=== PATIENT | male | born 1935 | race Caucasian/White ===

== ENCOUNTER 2018-08-18 00:38 | Emergency (ER) | payer OTHER, BC ==
[2018-08-18 00:47] VITALS: BP 153/72; PULSE 56; TEMP 97.7; BMI 28.8
--- NOTE | 2018-08-18 00:47 | PDOC ---
History of Present Illness - General Chief Complaint: Back Pain Stated Complaint: BACK PAIN Time Seen by Provider: 08/18/18 00:46 Past History - Past Medical History Diabetes: Yes Thyroid Disease: Yes - Suicide/Smoking/Psychosocial Hx Smoking History: Never smoked Have you smoked in the past 12 months: No Information on smoking cessation initiated: No Hx Alcohol Use: No Drug/Substance Use Hx: No *Physical Exam - Vital Signs Last Vital Signs Temp Pulse Resp BP Pulse Ox 97.7 F 56 L 18 153/72 98 08/18/18 00:45 08/18/18 00:45 08/18/18 00:45 08/18/18 00:45 08/18/18 00:45
--- NOTE | 2018-08-18 00:56 | PDOC ---
History of Present Illness - History of Present Illness Initial Comments: 08/18/18 00:55 Mr. Villanueva is an 83 yo male w/ pmh of DM, HTN, HLD, DVT, prostate CA (s/p prostatectomy), lumbar spinal stenosis (L4-L5), neuropathy, cholecystectomy, appendectomy who presents for evaluation of 1 day history of left lower back pain since waking up this morning. Patient took 2 flexeril (5 mg each) and 3 valiums (10 mg each) that he has for his spinal stenosis over the course of the day. Patient also reports falling around 6pm tonight as he was unsteady and does not recall if he his his head or not. He also reports he pees frequently throughout the day on a normal basis after his prostate operation (10-12 times/ day) The patient denies chest pain, shortness of breath, headache and dizziness. Denies fever, chills, nausea, vomit, diarrhea and constipation. Denies dysuria, urgency and hematuria. Allergies: NKDA <Blayne Zhang - Last Filed: 08/18/18 06:30> <Milo Nunn - Last Filed: 08/18/18 06:33> - General Chief Complaint: Back Pain Stated Complaint: BACK PAIN Time Seen by Provider: 08/18/18 00:46 Past History - Past Medical History Diabetes: Yes Thyroid Disease: Yes - Suicide/Smoking/Psychosocial Hx Smoking History: Never smoked Have you smoked in the past 12 months: No Information on smoking cessation initiated: No Hx Alcohol Use: No Drug/Substance Use Hx: No <Blayne Zhang - Last Filed: 08/18/18 06:30> <Milo Nunn - Last Filed: 08/18/18 06:33> - Past Medical History Allergies/Adverse Reactions: Allergies Allergy/AdvReac Type Severity Reaction Status Date / Time bee venom protein (honey bee) Allergy Mild Swelling Verified 08/18/18 01:25 Home Medications: Ambulatory Orders Cyclobenzaprine HCl [Flexeril -] 10 mg PO TID 08/18/18 Diazepam [Valium] 10 mg PO DAILY 08/18/18 Olmesartan Medoxomil [Benicar (Nf)] 20 mg PO DAILY 08/18/18 Review of Systems - Review of Systems Comments:: 08/18/18 00:55 GENERAL/CONSTITUTIONAL: No fever or chills. No weakness. HEAD, EYES, EARS, NOSE AND THROAT: No change in vision. No ear pain or discharge. No sore throat. CARDIOVASCULAR: No chest pain or shortness of breath RESPIRATORY: No cough, wheezing, or hemoptysis. GASTROINTESTINAL: No nausea, vomiting, diarrhea or constipation. GENITOURINARY: +Frequency as described (chronic). No dysuria, or change in urination. MUSCULOSKELETAL: +Left lower back pain as described. SKIN: No rash NEUROLOGIC: No headache, vertigo, loss of consciousness, or change in strength/ sensation. ENDOCRINE: No increased thirst. No abnormal weight change HEMATOLOGIC/LYMPHATIC: No anemia, easy bleeding, or history of blood clots. ALLERGIC/IMMUNOLOGIC: No hives or skin allergy. <Blayne Zhang - Last Filed: 08/18/18 06:30> *Physical Exam - Vital Signs Last Vital Signs Temp Pulse Resp BP Pulse Ox 97.7 F 56 L 18 153/72 98 08/18/18 00:45 08/18/18 00:45 08/18/18 00:45 08/18/18 00:45 08/18/18 00:45 - Physical Exam Comments: 08/18/18 00:55 GENERAL: Awake, alert, and fully oriented, in no acute distress HEAD: No signs of trauma, normocephalic, atraumatic EYES: PERRLA, EOMI, sclera anicteric, conjunctiva clear ENT: Auricles normal inspection, hearing grossly normal, nares patent, oropharynx clear without exudates. Moist mucosa NECK: Normal ROM, supple, no lymphadenopathy, JVD, or masses LUNGS: No distress, speaks full sentences, clear to auscultation bilaterally HEART: Regular rate and rhythm, normal S1 and S2, no murmurs, rubs or gallops, peripheral pulses normal and equal bilaterally. ABDOMEN: +RUQ and midline TTP. Left lower back TTP. Soft, normoactive bowel sounds. No guarding, no rebound. No masses EXTREMITIES: Normal inspection, Normal range of motion, no edema. No clubbing or cyanosis. NEUROLOGICAL: Cranial nerves II through XII grossly intact. Normal speech, normal gait, no focal sensorimotor deficits SKIN: Warm, Dry, normal turgor, no rashes or lesions noted. <Blayne Zhang - Last Filed: 08/18/18 06:30> - Vital Signs Last Vital Signs Temp Pulse Resp BP Pulse Ox 97.7 F 56 L 18 153/72 98 08/18/18 00:45 08/18/18 00:45 08/18/18 00:45 08/18/18 00:45 08/18/18 00:45 <Milo Nunn - Last Filed: 08/18/18 06:33> ED Treatment Course - LABORATORY CBC & Chemistry Diagram: 08/18/18 02:08 08/18/18 02:08 <Blayne Zhang - Last Filed: 08/18/18 06:30> - LABORATORY CBC & Chemistry Diagram: 08/18/18 02:08 08/18/18 02:08 - ADDITIONAL ORDERS Additional order review: Laboratory Results 08/18/18 08/18/18 08/18/18 03:50 02:08 02:08 PT with INR 11.20 INR 0.95 PTT (Actin FS) 26.9 Sodium Potassium Chloride Carbon Dioxide Anion Gap BUN Creatinine Creat Clearance w eGFR Random Glucose Calcium Total Bilirubin AST ALT Alkaline Phosphatase Troponin I Total Protein Albumin Urine Color Yellow Urine Appearance Clear Urine pH 5.0 Ur Specific Silver 1.023 Urine Protein Negative Urine Glucose (UA) 2+ H Urine Ketones Negative Urine Blood Negative Urine Nitrite Negative Urine Bilirubin Negative Urine Urobilinogen Negative Ur Leukocyte Esterase Negative Blood Type A POSITIVE Antibody Screen Negative 08/18/18 02:08 PT with INR INR PTT (Actin FS) Sodium 136 Potassium 5.1 Chloride 101 Carbon Dioxide 26 Anion Gap 9 BUN 21 H Creatinine 1.1 Creat Clearance w eGFR > 60 Random Glucose 174 H Calcium 10.5 H Total Bilirubin 0.8 AST 15 ALT 23 Alkaline Phosphatase 73 Troponin I < 0.02 Total Protein 6.9 Albumin 3.8 Urine Color Urine Appearance Urine pH Ur Specific Silver Urine Protein Urine Glucose (UA) Urine Ketones Urine Blood Urine Nitrite Urine Bilirubin Urine Urobilinogen Ur Leukocyte Esterase Blood Type Antibody Screen 08/18/18 02:08 RBC 3.97 L MCV 94.8 MCHC 33.3 RDW 13.5 MPV 8.4 Neutrophils % 80.6 Lymphocytes % 12.8 Monocytes % 6.0 Eosinophils % 0.4 Basophils % 0.2 - Medications Given in the ED: ED Medications Discontinued Medications Generic Name Dose Route Start Last Admin Trade Name Freq PRN Reason Stop Dose Admin Acetaminophen 1,000 mg 08/18/18 01:27 08/18/18 02:00 Ofirmev Injection - IVPB 08/18/18 01:28 1,000 mg ONCE ONE Administration Morphine Sulfate 4 mg 08/18/18 01:27 08/18/18 02:00 Morphine Injection - IVPUSH 08/18/18 01:28 4 mg ONCE ONE Administration Morphine Sulfate 4 mg 08/18/18 03:44 08/18/18 04:00 Morphine Injection - IVPUSH 08/18/18 03:45 4 mg ONCE ONE Administration <Milo Nunn - Last Filed: 08/18/18 06:33> Medical Decision Making - Medical Decision Making 08/18/18 01:48 Mr. Villanueva is an 83 yo male w/ pmh as described who presents for evaluation of symptoms concerning for severe muscle spasm vs. dissection. Pain control given with 4mg morphine and IV tylenol. CT head, c-spine, chest and abdominal CTA ordered for further evaluation. 08/18/18 06:30 CT Head, CT c-spine, Chest and abdomen CTA all negative. Labs grossly wnl as below. Patient reporting generalized relief from symptoms and would like to go home. No concern for acute process at this time. Discharging to home. <Blayne Zhang - Last Filed: 08/18/18 06:30> *DC/Admit/Observation/Transfer <Blayne Zhang - Last Filed: 08/18/18 06:30> - Discharge Dispostion Decision to Admit order: No <Milo Nunn - Last Filed: 08/18/18 06:33> Diagnosis at time of Disposition: Back pain Qualifiers: Back pain location: low back pain Chronicity: chronic Back pain laterality: left Sciatica presence: without sciatica Qualified Code(s): M54.5 - Low back pain - Discharge Dispostion Disposition: HOME Condition at time of disposition: Good - Referrals Referrals: Surya Bermudez MD [Primary Care Provider] - - Patient Instructions Printed Discharge Instructions: Low Back Pain Additional Instructions: Take-home pain medications only as prescribed do not take extra.Today take Percocet every 6 hours with meals. Take Valium twice a day. Take over-the- counter Motrin as directed on package every 4-6 hours. Call your pain management doctor this morning to discuss his regimen and follow all instructions provided by pain management doctor. Follow up tomorrow with your doctor to discuss her worsening pain. Return to the emergency department for any new weakness numbness bowel or bladder incontinence for any concerns.
[2018-08-18] MEDS ORDERED: ACETAMINOPHEN 1000 MG/100 ML VIAL (NON FORMULARY) IVPB ONE (01:27)
[2018-08-18] MEDS ORDERED: morphine CARPU-JECT 4 MG/1 ML DISP.SYRIN IVPUSH ONE ×2 (01:27→03:44)
[2018-08-18] MEDS ORDERED: ACETAMINOPHEN INJECTION 100 ML IVPB ONE (01:36)
[2018-08-18] MEDS ORDERED: morphine SULFATE 4 MG/ML VIAL ONE ×2 (01:36→03:55)
[2018-08-18 02:47] LABS: BASO % 0.2 % (0-2.0); EOS % 0.4 % (0-4.5); HEMATOCRIT 37.6 % (35.4-49); HEMOGLOBIN 12.5 GM/dL (11.7-16.9); LYMPH % 12.8 % (8-40); MCH 31.5 pg (25.7-33.7); MCHC 33.3 g/dl (32.0-35.9); MEAN CELL VOLUME 94.8 fl (80-96); MEAN PLT VOLUME 8.4 fl (7.5-11.1); NEUT % 80.6 % (42.8-82.8); PLATELET COUNT 219 K/MM3 (134-434); RBC 3.97 M/mm3 (4.00-5.60); RDW 13.5 % (11.9-15.9); WHITE BLOOD COUNT 6.7 K/mm3 (4.0-10.0)
[2018-08-18 03:06] LABS: INR 0.95 (0.83-1.09); PROTHROMBIN TIME (PATIENT) 11.2 SEC (9.7-13.0)
[2018-08-18 03:09] LABS: ACTIVATED PTT 26.9 SECONDS (25.2-36.5)
[2018-08-18 03:16] LABS: ALBUMIN 3.8 g/dl (3.4-5.0); ALK PHOS 73 U/L (45-117); ANION GAP 9 MMOL/L (8-16); BILIRUBIN,TOTAL 0.8 mg/dL (0.2-1); BLOOD UREA NITROGEN 21 mg/dL (7-18); CALCIUM 10.5 mg/dL (8.5-10.1); CHLORIDE 101 mmol/L (98-107); CO2 26 mmol/L (21-32); CREATININE 1.1 mg/dL (0.55-1.3); GLUCOSE,RANDOM 174 mg/dL (74-106); POTASSIUM 5.1 mmol/L (3.5-5.1); SGOT/AST 15 U/L (15-37); SGPT/ALT 23 U/L (13-61); SODIUM 136 mmol/L (136-145); TOT PROT 6.9 g/dl (6.4-8.2)
[2018-08-18 04:03] LABS: URINE APPEARANCE CLEAR; URINE BILIRUBIN NEGATIVE (<2.0 mg/dL); URINE COLOR YELLOW; URINE GLUCOSE (UA) 2+ (NEGATIVE); URINE KETONE NEGATIVE (NEGATIVE); URINE LEUK ESTERASE NEGATIVE (NEGATIVE); URINE NITRITE NEGATIVE (NEGATIVE); URINE PROTEIN NEGATIVE (NEGATIVE); URINE UROBILINOGEN NEGATIVE mg/dL (0.2-1.0)
--- NOTE | 2018-08-18 05:16 | PDOC ---
Attending Attestation - Resident Resident Name: Blayne Zhang - ED Attending Attestation I have performed the following: I have examined & evaluated the patient, The case was reviewed & discussed with the resident, I agree w/resident's findings & plan, Exceptions are as noted - HPI HPI: 08/18/18 05:18 83 years old past medical history significant for diabetes hypertension hyperlipidemia DVT prostate cancer lumbar spinal stenosis neuropathy cholecystectomy appendectomy with exacerbation of chronic back pain. Patient follows with a pain management doctor took 2 Flexeril 3 Valiums over the course of the day of later in the evening became unsteady and fell Complaining of tenderness and back pain left-sided radiates around persistent concent worse with movement no alleviating factors - Physicial Exam PE: 08/18/18 05:18 Vitals: Triage Vital signs reviewed General Appearance: no acute distress, well nourished well developed, Head: Atraumatic, Neck: Supple;No Nucal rigidity Chest Wall: Nontender Cardiac: Regular rate and rhythym,Lungs: Clear to auscultation bilateral, good air movement bilaterally, Abdomen: Soft, non distended, normal bowel sounds, non tender to palpation Extremities: Full range of motion to all extremities, no cyanosis, clubbing, or edema Skin: Warm and dry, no rashes or lesions, no rash, no petechiae Neuro: Strength intact to all extremities, Sensation intact to all extremities Psych: normal mood, normal affect - Medical Decision Making 08/18/18 05:18 \Moderate to severe back pain rating went abdomen differential diagnosis includes vascular radiology exacerbation of chronic pain We'll CTA chest abdomen pelvis to rule out dissection and aneurysm pain medication observe and reassess Fall is most likely secondary to overmedication on benzos however EKG troponin also obtained Reevaluation CTA negative for acute pathology Patient feels much better after pain medication EKG nonischemic troponin negative patient will discuss further pain management with his doctor today Findings, need for follow-up and strict return instructions discussed with patient. Heart Score/ECG Review - ECG Impressions Comment:: 08/18/18 05:54 EKG performed at 5:29 AM demonstrates sinus rhythm [address] elevations
--- NOTE | 2018-08-18 10:42 | EKG ---
Test Reason : Blood Pressure : / mmHG Vent. Rate : 055 BPM Atrial Rate : 055 BPM P-R Int : 146 ms QRS Dur : 126 ms QT Int : 456 ms P-R-T Axes : 037 021 008 degrees QTc Int : 436 ms SINUS BRADYCARDIA RIGHT BUNDLE BRANCH BLOCK ABNORMAL ECG WHEN COMPARED WITH ECG OF 10-JAN-2018 14:00, NO SIGNIFICANT CHANGE WAS FOUND Confirmed by ELIER JEFFERY MD ([id number]) on 08/18/2018 10:42:00 AM Referred By: Confirmed By:ELIER EJFFERY MD
== END 2018-08-18 06:50 | disposition home or self-care (01) ==
LOC: JER 00:38
DX: M54.5 Low back pain (principal); E11.9 Type 2 diabetes mellitus without complications; I10 Essential (primary) hypertension; E78.5 Hyperlipidemia, unspecified; Z86.718 Personal history of other venous thrombosis and embolism; Z85.46 Personal history of malignant neoplasm of prostate; V43.52XA Car driver injured in collision with other type car in traffic accident, initial encounter; Y93.89 Activity, other specified; Y92.410 Unspecified street and highway as the place of occurrence of the external cause
CPT/HCPCS: 36415; 70450-TC; 71275-TC; 72126-TC; 74175-TC; 80053; 81003; 84484; 85025; 85610; 85730; 86850; 86900; 86901; 87086; 93005; 93010; 99283-25; J0131

== ENCOUNTER 2022-10-26 14:09 | Inpatient (IN) | payer OTHER, BC ==
[2022-10-26 18:21] LABS: CALCIUM 10.3 mg/dL (8.5-10.1)
[2022-10-26 18:22] LABS: ALBUMIN 3.9 g/dl (3.4-5.0); BLOOD UREA NITROGEN 12.6 mg/dL (7-18)
[2022-10-26 18:27] LABS: BILIRUBIN,TOTAL 1.1 mg/dL (0.2-1); TOT PROT 6.7 g/dl (6.4-8.2)
[2022-10-26 18:28] LABS: BASO % 0.2 % (0-2.0); EOS % 0.1 % (0-4.5); HEMATOCRIT 38.6 % (35.4-49); HEMOGLOBIN 12.5 GM/dL (11.7-16.9); LYMPH % 3.7 % (8-40); MCH 29.6 pg (25.7-33.7); MCHC 32.4 g/dl (32.0-35.9); MEAN CELL VOLUME 91.3 fl (80-96); MEAN PLT VOLUME 7.9 fl (7.5-11.1); MONO % 3.6 % (3.8-10.2); NEUT % 92.4 % (42.8-82.8); PLATELET COUNT 231 10^3/uL (134-434); RBC 4.23 M/mm3 (4.00-5.60); RDW 13.7 % (11.9-15.9); WHITE BLOOD COUNT 11.5 K/mm3 (4.0-10.0)
[2022-10-26 18:56] LABS: PLATELET ESTIMATE ADEQUATE
[2022-10-26] MEDS ORDERED: SODIUM CHLORIDE 1,000 ML IV STA (22:41)
[2022-10-26] MEDS ORDERED: PEG 3350/NA SULF BICARB CL/KCL 4000 ML SOLN.RECON PO ONE (22:42)
[2022-10-26] MEDS ORDERED: MINERAL OIL ENEMA 133 ML ENEMA RC ONE (22:42)
[2022-10-27] MEDS ORDERED: HALOPERIDOL LACTATE 5 MG/ML IM PRN (00:16)
[2022-10-27] MEDS ORDERED: LORazepam 2 MG/ML SDV VIAL IVPUSH ONE ×2 (00:16→01:18)
[2022-10-27] MEDS ORDERED: HALOPERIDOL LACTATE 5 MG/ML IM ONE ×2 (00:16→00:34)
[2022-10-27 08:45] LABS: BASO % 0.2 % (0-2.0); HEMATOCRIT 36.1 % (35.4-49); HEMOGLOBIN 11.9 GM/dL (11.7-16.9); LYMPH % 6.5 % (8-40); MEAN CELL VOLUME 90.9 fl (80-96); MEAN PLT VOLUME 8.7 fl (7.5-11.1); MONO % 4.9 % (3.8-10.2); NEUT % 88.4 % (42.8-82.8); PLATELET COUNT 246 10^3/uL (134-434); RBC 3.97 M/mm3 (4.00-5.60); RDW 13.8 % (11.9-15.9); WHITE BLOOD COUNT 12.2 K/mm3 (4.0-10.0)
[2022-10-27] MEDS ORDERED: ENOXAPARIN NA (PORCINE) 40 MG/0.4 ML DISP.SYRIN SQ ONE (08:55)
[2022-10-27] MEDS ORDERED: CEFTRIAXONE 1 GM/50 ML BAG ONE (08:55)
[2022-10-27 09:07] LABS: ALBUMIN 3.5 g/dl (3.4-5.0); BLOOD UREA NITROGEN 15.5 mg/dL (7-18); MAGNESIUM 1.8 mg/dL (1.8-2.4)
[2022-10-27 09:08] LABS: BILIRUBIN,TOTAL 1.9 mg/dL (0.2-1); TOT PROT 6.3 g/dl (6.4-8.2)
[2022-10-27 09:10] LABS: CREATININE 1.1 mg/dL (0.55-1.3); PHOSPHOROUS 3.1 mg/dL (2.5-4.9)
[2022-10-27] MEDS: MINERAL OIL ENEMA 133 ML ENEMA RC SCH ×3 (09:32→10:01)
[2022-10-27] MEDS: ENOXAPARIN NA (PORCINE) 40 MG/0.4 ML DISP.SYRIN SQ SCH (10:00)
[2022-10-27] MEDS: CEFTRIAXONE 1 GM in DEXTROSE 5%-WATER - 50 ML IVPB SCH (10:01)
[2022-10-27] MEDS ORDERED: LACTATED RINGERS SOLUTION 1,000 ML/1,000 ML INFUS.BAG IV SCH (13:00)
[2022-10-27] MEDS: SODIUM CHLORIDE 1,000 ML IV SCH (13:19)
[2022-10-27] MEDS: POLYETHYLENE GLYCOL (HEALTHYLAX) 3350 17 GM PACKET PO SCH ×3 (13:19→23:02)
[2022-10-27 14:23] LABS: URINE APPEARANCE CLEAR; URINE BILIRUBIN NEGATIVE (NEGATIVE); URINE COLOR YELLOW; URINE GLUCOSE (UA) NEGATIVE (NEGATIVE); URINE KETONE NEGATIVE (NEGATIVE); URINE LEUK ESTERASE NEGATIVE (NEGATIVE); URINE NITRITE NEGATIVE (NEGATIVE); URINE PROTEIN TRACE (NEGATIVE); URINE UROBILINOGEN 0.2 mg/dL (0.2-1.0)
[2022-10-27] MEDS ORDERED: ACETAMINOPHEN 1000 MG/100 ML BAG IVPB ONE (17:39)
[2022-10-27] MEDS ORDERED: ACETAMINOPHEN INJECTION 100 ML IVPB ONE (17:44)
[2022-10-27] MEDS ORDERED: POLYETHYLENE GLYCOL (HEALTHYLAX) 3350 17 GM PACKET ONE (22:51)
[2022-10-27] MEDS ORDERED: MELATONIN 5 MG TABLETS ONE (22:51)
[2022-10-27] MEDS: MELATONIN 5 MG TABLETS PO PRN (23:02)
[2022-10-27] MEDS ORDERED: ACETAMINOPHEN 1000 MG/100 ML BAG IVPB PRN (23:59)
[2022-10-28] MEDS ORDERED: HALOPERIDOL LACTATE 5 MG/ML IM ONE (01:25)
[2022-10-28 09:58] LABS: BASO % 0.3 % (0-2.0); EOS % 0.4 % (0-4.5); HEMATOCRIT 31.1 % (35.4-49); HEMOGLOBIN 10.6 GM/dL (11.7-16.9); LYMPH % 7.7 % (8-40); MCH 30.9 pg (25.7-33.7); MCHC 34.2 g/dl (32.0-35.9); MEAN CELL VOLUME 90.3 fl (80-96); MEAN PLT VOLUME 7.9 fl (7.5-11.1); MONO % 5.4 % (3.8-10.2); NEUT % 86.2 % (42.8-82.8); PLATELET COUNT 203 10^3/uL (134-434); RBC 3.45 M/mm3 (4.00-5.60); RDW 13.9 % (11.9-15.9); WHITE BLOOD COUNT 8.5 K/mm3 (4.0-10.0)
[2022-10-28 10:23] LABS: BLOOD UREA NITROGEN 19.3 mg/dL (7-18); CALCIUM 9.6 mg/dL (8.5-10.1); MAGNESIUM 1.7 mg/dL (1.8-2.4)
[2022-10-28 10:24] LABS: ALBUMIN 3.2 g/dl (3.4-5.0)
[2022-10-28 10:26] LABS: PHOSPHOROUS 2.4 mg/dL (2.5-4.9)
[2022-10-28 10:28] LABS: BILIRUBIN,TOTAL 1.7 mg/dL (0.2-1); TOT PROT 5.9 g/dl (6.4-8.2)
[2022-10-28] MEDS: POLYETHYLENE GLYCOL (HEALTHYLAX) 3350 17 GM PACKET PO SCH ×2 (10:40→21:36)
[2022-10-28] MEDS: CEFTRIAXONE 1 GM in DEXTROSE 5%-WATER - 50 ML IVPB SCH (10:45)
[2022-10-28] MEDS: ENOXAPARIN NA (PORCINE) 40 MG/0.4 ML DISP.SYRIN SQ SCH (10:45)
[2022-10-28] MEDS: LOSARTAN POTASSIUM 50 MG TABLET PO SCH (10:45)
[2022-10-28] MEDS ORDERED: LOSARTAN POTASSIUM 50 MG TABLET ONE (10:49)
[2022-10-28] MEDS ORDERED: CEFTRIAXONE 1 GM/50 ML BAG ONE (10:49)
[2022-10-28] MEDS ORDERED: ENOXAPARIN NA (PORCINE) 40 MG/0.4 ML DISP.SYRIN SQ ONE (10:49)
[2022-10-28] MEDS ORDERED: MAGNESIUM SULF 50% (8.12 MEQ/2 ML-1 GM VIAL) IVPB ONE (11:57)
[2022-10-28] MEDS ORDERED: MAGNESIUM 1GM/D5W - 1 GM/100 ML IVPB IVPB ONE (12:00)
[2022-10-28] MEDS ORDERED: POTASSIUM PHOSPHATE 15 MM in SODIUM CHLORIDE 250 ML IVPB ONE (12:30)
[2022-10-28] MEDS: SODIUM CHLORIDE 1,000 ML IV SCH (13:25)
[2022-10-28 20:07] VITALS: BMI 26.9
[2022-10-28] MEDS: MELATONIN 5 MG TABLETS PO PRN (21:42)
[2022-10-29] MEDS ORDERED: POTASSIUM PHOSPHATE 30 MM in DEXTROSE 5%-WATER - 500 ML IVPB ONE (08:08)
[2022-10-29] MEDS ORDERED: MAGNESIUM SULF 50% (8.12 MEQ/2 ML-1 GM VIAL) IVPB ONE (08:30)
[2022-10-29] MEDS ORDERED: SODIUM PHOSPHATE - 30 MM in SODIUM CHLORIDE 500 ML IVPB ONE (10:00)
[2022-10-29 11:35] LABS: BASO % 0.5 % (0-2.0); EOS % 1.4 % (0-4.5); LYMPH % 10.7 % (8-40); MCH 31.2 pg (25.7-33.7); MCHC 34.6 g/dl (32.0-35.9); MEAN CELL VOLUME 90.3 fl (80-96); MEAN PLT VOLUME 8.3 fl (7.5-11.1); NEUT % 81.4 % (42.8-82.8); PLATELET COUNT 197 10^3/uL (134-434); RBC 3.21 M/mm3 (4.00-5.60); RDW 13.6 % (11.9-15.9)
[2022-10-29 12:07] LABS: ALBUMIN 2.8 g/dl (3.4-5.0)
[2022-10-29 12:08] LABS: BLOOD UREA NITROGEN 15.2 mg/dL (7-18); CALCIUM 9.2 mg/dL (8.5-10.1); MAGNESIUM 1.8 mg/dL (1.8-2.4)
[2022-10-29 12:10] LABS: CREATININE 0.8 mg/dL (0.55-1.3); PHOSPHOROUS 2.6 mg/dL (2.5-4.9)
[2022-10-29 12:12] LABS: TOT PROT 5.3 g/dl (6.4-8.2)
[2022-10-29] MEDS: ENOXAPARIN NA (PORCINE) 40 MG/0.4 ML DISP.SYRIN SQ SCH (12:36)
[2022-10-29] MEDS: LOSARTAN POTASSIUM 50 MG TABLET PO SCH (12:36)
[2022-10-29] MEDS: CEFTRIAXONE 1 GM in DEXTROSE 5%-WATER - 50 ML IVPB SCH (12:36)
[2022-10-29] MEDS: POLYETHYLENE GLYCOL (HEALTHYLAX) 3350 17 GM PACKET PO SCH ×3 (12:38→22:48)
[2022-10-29] MEDS ORDERED: MAGNESIUM 2GM/50ML STERILE WATER IVPB IVPB ONE (15:30)
[2022-10-29] MEDS: MELATONIN 5 MG TABLETS PO PRN (22:47)
[2022-10-30] MEDS: POLYETHYLENE GLYCOL (HEALTHYLAX) 3350 17 GM PACKET PO SCH ×3 (07:05→21:24)
[2022-10-30] MEDS: ENOXAPARIN NA (PORCINE) 40 MG/0.4 ML DISP.SYRIN SQ SCH (10:40)
[2022-10-30] MEDS: CEFTRIAXONE 1 GM in DEXTROSE 5%-WATER - 50 ML IVPB SCH (10:40)
[2022-10-30] MEDS: LOSARTAN POTASSIUM 50 MG TABLET PO SCH (10:40)
[2022-10-30 11:52] LABS: BASO % 0.3 % (0-2.0); EOS % 1.1 % (0-4.5); HEMATOCRIT 31.1 % (35.4-49); HEMOGLOBIN 10.8 GM/dL (11.7-16.9); LYMPH % 9.4 % (8-40); MCHC 34.8 g/dl (32.0-35.9); MEAN CELL VOLUME 89.3 fl (80-96); MEAN PLT VOLUME 8.4 fl (7.5-11.1); NEUT % 83.2 % (42.8-82.8); PLATELET COUNT 232 10^3/uL (134-434); RBC 3.48 M/mm3 (4.00-5.60); RDW 13.4 % (11.9-15.9); WHITE BLOOD COUNT 5.8 K/mm3 (4.0-10.0)
[2022-10-30 11:56] LABS: ALBUMIN 2.9 g/dl (3.4-5.0); CALCIUM 9.3 mg/dL (8.5-10.1)
[2022-10-30 11:57] LABS: BLOOD UREA NITROGEN 15.9 mg/dL (7-18)
[2022-10-30 11:59] LABS: CREATININE 0.9 mg/dL (0.55-1.3); PHOSPHOROUS 2.9 mg/dL (2.5-4.9)
[2022-10-30 12:01] LABS: BILIRUBIN,TOTAL 0.8 mg/dL (0.2-1); TOT PROT 5.3 g/dl (6.4-8.2)
[2022-10-30] MEDS ORDERED: IRON SUCROSE INJECTION 200 MG in SODIUM CHLORIDE 90 ML IVPB ONE (18:30)
[2022-10-30] MEDS: MELATONIN 5 MG TABLETS PO PRN (22:31)
[2022-10-31] MEDS: POLYETHYLENE GLYCOL (HEALTHYLAX) 3350 17 GM PACKET PO SCH ×3 (06:59→22:07)
[2022-10-31 10:39] LABS: BASO % 0.5 % (0-2.0); EOS % 0.5 % (0-4.5); HEMATOCRIT 34.1 % (35.4-49); HEMOGLOBIN 11.6 GM/dL (11.7-16.9); LYMPH % 10.8 % (8-40); MCH 30.5 pg (25.7-33.7); MCHC 33.9 g/dl (32.0-35.9); MEAN CELL VOLUME 89.7 fl (80-96); MEAN PLT VOLUME 8.1 fl (7.5-11.1); NEUT % 80.2 % (42.8-82.8); PLATELET COUNT 276 10^3/uL (134-434); RDW 13.4 % (11.9-15.9); WHITE BLOOD COUNT 6.9 K/mm3 (4.0-10.0)
[2022-10-31] MEDS: LOSARTAN POTASSIUM 50 MG TABLET PO SCH (10:47)
[2022-10-31] MEDS: ENOXAPARIN NA (PORCINE) 40 MG/0.4 ML DISP.SYRIN SQ SCH (10:47)
[2022-10-31] MEDS: CEFTRIAXONE 1 GM in DEXTROSE 5%-WATER - 50 ML IVPB SCH (10:48)
[2022-10-31 11:16] LABS: CALCIUM 9.8 mg/dL (8.5-10.1)
[2022-10-31 11:17] LABS: BLOOD UREA NITROGEN 15.4 mg/dL (7-18); MAGNESIUM 1.9 mg/dL (1.8-2.4)
[2022-10-31 11:20] LABS: PHOSPHOROUS 2.9 mg/dL (2.5-4.9)
[2022-10-31 11:22] LABS: BILIRUBIN,TOTAL 1.2 mg/dL (0.2-1); TOT PROT 5.9 g/dl (6.4-8.2)
[2022-10-31] MEDS: MELATONIN 5 MG TABLETS PO PRN (22:07)
[2022-11-01] MEDS: POLYETHYLENE GLYCOL (HEALTHYLAX) 3350 17 GM PACKET PO SCH ×2 (05:37→14:22)
[2022-11-01] MEDS: LOSARTAN POTASSIUM 50 MG TABLET PO SCH (10:01)
[2022-11-01] MEDS: ENOXAPARIN NA (PORCINE) 40 MG/0.4 ML DISP.SYRIN SQ SCH (10:02)
[2022-11-01] MEDS: CEFTRIAXONE 1 GM in DEXTROSE 5%-WATER - 50 ML IVPB SCH (10:02)
[2022-11-01] MEDS ORDERED: SODIUM CHLORIDE 0.45% 1,000 ML IV SCH ×2 (15:45→15:47)
[2022-11-02] MEDS: POLYETHYLENE GLYCOL (HEALTHYLAX) 3350 17 GM PACKET PO SCH ×4 (00:16→23:04)
[2022-11-02] MEDS: MELATONIN 5 MG TABLETS PO PRN (00:36)
[2022-11-02] MEDS: ENOXAPARIN NA (PORCINE) 40 MG/0.4 ML DISP.SYRIN SQ SCH (09:25)
[2022-11-02] MEDS: LOSARTAN POTASSIUM 50 MG TABLET PO SCH (09:25)
[2022-11-02 10:38] LABS: ALBUMIN 2.6 g/dl (3.4-5.0); CALCIUM 9.9 mg/dL (8.5-10.1); MAGNESIUM 1.9 mg/dL (1.8-2.4)
[2022-11-02 10:39] LABS: BLOOD UREA NITROGEN 33.8 mg/dL (7-18)
[2022-11-02 10:41] LABS: CREATININE 1.2 mg/dL (0.55-1.3); PHOSPHOROUS 3.1 mg/dL (2.5-4.9); URIC ACID 6.5 mg/dL (2.6-7.2)
[2022-11-02 10:43] LABS: BILIRUBIN,TOTAL 1.6 mg/dL (0.2-1); TOT PROT 5.6 g/dl (6.4-8.2)
[2022-11-02 14:41] LABS: BASO % 0.3 % (0-2.0); EOS % 0.3 % (0-4.5); HEMATOCRIT 33.5 % (35.4-49); HEMOGLOBIN 11.2 GM/dL (11.7-16.9); LYMPH % 4.9 % (8-40); MCH 30.2 pg (25.7-33.7); MCHC 33.5 g/dl (32.0-35.9); MEAN CELL VOLUME 90.2 fl (80-96); MEAN PLT VOLUME 7.9 fl (7.5-11.1); MONO % 5.8 % (3.8-10.2); NEUT % 88.7 % (42.8-82.8); PLATELET COUNT 315 10^3/uL (134-434); RBC 3.72 M/mm3 (4.00-5.60); RDW 13.5 % (11.9-15.9); WHITE BLOOD COUNT 11.5 K/mm3 (4.0-10.0)
[2022-11-02] MEDS ORDERED: INSULIN SLIDING SCALE (NOVOLOG) 1 VIAL SQ SCH (16:30)
[2022-11-02] MEDS ORDERED: SODIUM CHLORIDE 1,000 ML IV SCH (17:00)
[2022-11-02] MEDS ORDERED: LIDOCAINE HCL 2% JELLY 10 ML CARTRIDGE UR ONE (18:34)
[2022-11-02] MEDS: TAMSULOSIN HCL 0.4 MG CAP PO SCH (22:04)
[2022-11-03] MEDS: POLYETHYLENE GLYCOL (HEALTHYLAX) 3350 17 GM PACKET PO SCH ×5 (06:03→21:10)
[2022-11-03] MEDS: INSULIN SLIDING SCALE (NOVOLOG) 1 VIAL SQ SCH ×3 (06:04→16:20)
[2022-11-03] MEDS: TAMSULOSIN HCL 0.4 MG CAP PO SCH ×2 (08:01→21:06)
[2022-11-03] MEDS ORDERED: TAMSULOSIN HCL 0.4 MG CAP PO SCH (08:30)
[2022-11-03] MEDS: FINASTERIDE 5 MG TABLET (FP) PO SCH (09:26)
[2022-11-03] MEDS: LOSARTAN POTASSIUM 50 MG TABLET PO SCH (09:26)
[2022-11-03] MEDS: ENOXAPARIN NA (PORCINE) 40 MG/0.4 ML DISP.SYRIN SQ SCH (09:26)
[2022-11-03 10:38] LABS: BASO % 0.4 % (0-2.0); EOS % 1.6 % (0-4.5); HEMOGLOBIN 10.7 GM/dL (11.7-16.9); LYMPH % 11.1 % (8-40); MCHC 34.6 g/dl (32.0-35.9); MEAN CELL VOLUME 89.5 fl (80-96); MONO % 5.5 % (3.8-10.2); NEUT % 81.4 % (42.8-82.8); PLATELET COUNT 263 10^3/uL (134-434); RBC 3.47 M/mm3 (4.00-5.60); RDW 13.3 % (11.9-15.9); WHITE BLOOD COUNT 6.9 K/mm3 (4.0-10.0)
[2022-11-03 11:16] LABS: ALBUMIN 2.4 g/dl (3.4-5.0); BILIRUBIN,TOTAL 0.8 mg/dL (0.2-1); BLOOD UREA NITROGEN 30.5 mg/dL (7-18); CREATININE 0.8 mg/dL (0.55-1.3); PHOSPHOROUS 1.9 mg/dL (2.5-4.9)
[2022-11-03 11:17] LABS: MAGNESIUM 1.7 mg/dL (1.8-2.4)
[2022-11-03 11:18] LABS: TOT PROT 5.1 g/dl (6.4-8.2)
[2022-11-03 11:20] LABS: CALCIUM 9.5 mg/dL (8.5-10.1)
[2022-11-03] MEDS: MAGNESIUM SULF 50% (8.12 MEQ/2 ML-1 GM VIAL) IVPB ONE ×2 (14:39→15:08)
[2022-11-03] MEDS: POTASSIUM CHLORIDE ORAL LIQUID 20 MEQ/15 ML PO ONE ×2 (14:39→15:08)
[2022-11-03] MEDS: NAPH,MB-DB/K PH,MBDB POWDER PACKET PO ONE ×2 (14:39→15:09)
[2022-11-03] MEDS ORDERED: MAGNESIUM OXIDE 400 MG TABLET (FP) PO ONE (15:36)
[2022-11-04] MEDS: POLYETHYLENE GLYCOL (HEALTHYLAX) 3350 17 GM PACKET PO SCH ×3 (05:13→21:48)
[2022-11-04] MEDS: INSULIN SLIDING SCALE (NOVOLOG) 1 VIAL SQ SCH ×3 (06:05→17:13)
[2022-11-04 11:28] LABS: BLOOD UREA NITROGEN 26.6 mg/dL (7-18); CALCIUM 9.5 mg/dL (8.5-10.1); MAGNESIUM 1.6 mg/dL (1.8-2.4)
[2022-11-04 11:32] LABS: CREATININE 0.8 mg/dL (0.55-1.3)
[2022-11-04] MEDS: ENOXAPARIN NA (PORCINE) 40 MG/0.4 ML DISP.SYRIN SQ SCH (11:47)
[2022-11-04] MEDS: FINASTERIDE 5 MG TABLET (FP) PO SCH (11:47)
[2022-11-04] MEDS: LOSARTAN POTASSIUM 50 MG TABLET PO SCH (11:47)
[2022-11-04] MEDS: TAMSULOSIN HCL 0.4 MG CAP PO SCH ×2 (11:47→21:47)
[2022-11-04] MEDS ORDERED: POTASSIUM CHLORIDE TABS 20 MEQ TABLET.ER (FP) PO ONE (21:20)
[2022-11-04] MEDS ORDERED: MAGNESIUM OXIDE 400 MG TABLET (FP) PO ONE (21:20)
[2022-11-04] MEDS ORDERED: NAPH,MB-DB/K PH,MBDB POWDER PACKET PO ONE (21:21)
[2022-11-04] MEDS: MELATONIN 5 MG TABLETS PO PRN (21:47)
[2022-11-05] MEDS: INSULIN SLIDING SCALE (NOVOLOG) 1 VIAL SQ SCH ×3 (06:41→18:05)
[2022-11-05] MEDS: POLYETHYLENE GLYCOL (HEALTHYLAX) 3350 17 GM PACKET PO SCH ×3 (06:42→22:37)
[2022-11-05] MEDS: ENOXAPARIN NA (PORCINE) 40 MG/0.4 ML DISP.SYRIN SQ SCH (10:38)
[2022-11-05] MEDS: TAMSULOSIN HCL 0.4 MG CAP PO SCH ×2 (10:38→22:37)
[2022-11-05] MEDS: LOSARTAN POTASSIUM 50 MG TABLET PO SCH (10:38)
[2022-11-05] MEDS: FINASTERIDE 5 MG TABLET (FP) PO SCH (10:38)
[2022-11-05 11:46] LABS: BASO % 0.3 % (0-2.0); HEMATOCRIT 29.7 % (35.4-49); HEMOGLOBIN 10.1 GM/dL (11.7-16.9); LYMPH % 13.5 % (8-40); MCH 30.2 pg (25.7-33.7); MCHC 33.9 g/dl (32.0-35.9); MEAN CELL VOLUME 89.2 fl (80-96); MEAN PLT VOLUME 7.6 fl (7.5-11.1); MONO % 4.7 % (3.8-10.2); NEUT % 78.5 % (42.8-82.8); PLATELET COUNT 262 10^3/uL (134-434); RBC 3.33 M/mm3 (4.00-5.60); RDW 13.4 % (11.9-15.9); WHITE BLOOD COUNT 5.2 K/mm3 (4.0-10.0)
[2022-11-05 12:17] LABS: ALBUMIN 2.4 g/dl (3.4-5.0); BLOOD UREA NITROGEN 20.3 mg/dL (7-18); CALCIUM 9.2 mg/dL (8.5-10.1); MAGNESIUM 1.5 mg/dL (1.8-2.4)
[2022-11-05 12:20] LABS: CREATININE 0.8 mg/dL (0.55-1.3)
[2022-11-05 12:22] LABS: BILIRUBIN,TOTAL 0.6 mg/dL (0.2-1)
[2022-11-05] MEDS ORDERED: POTASSIUM CHLORIDE ORAL LIQUID 20 MEQ/15 ML PO ONE (17:37)
[2022-11-05] MEDS ORDERED: NAPH,MB-DB/K PH,MBDB POWDER PACKET PO ONE (17:37)
[2022-11-05] MEDS ORDERED: MAGNESIUM OXIDE 400 MG TABLET (FP) PO ONE (17:37)
[2022-11-06] MEDS: POLYETHYLENE GLYCOL (HEALTHYLAX) 3350 17 GM PACKET PO SCH (06:08)
[2022-11-06] MEDS: INSULIN SLIDING SCALE (NOVOLOG) 1 VIAL SQ SCH ×3 (06:21→17:34)
[2022-11-06 09:20] LABS: BASO % 0.4 % (0-2.0); EOS % 3.3 % (0-4.5); HEMOGLOBIN 10.8 GM/dL (11.7-16.9); LYMPH % 14.4 % (8-40); MCH 30.1 pg (25.7-33.7); MCHC 33.7 g/dl (32.0-35.9); MEAN CELL VOLUME 89.4 fl (80-96); MEAN PLT VOLUME 7.6 fl (7.5-11.1); MONO % 5.9 % (3.8-10.2); PLATELET COUNT 279 10^3/uL (134-434); RBC 3.58 M/mm3 (4.00-5.60); RDW 13.2 % (11.9-15.9)
[2022-11-06] MEDS: FINASTERIDE 5 MG TABLET (FP) PO SCH (09:20)
[2022-11-06] MEDS: TAMSULOSIN HCL 0.4 MG CAP PO SCH ×2 (09:20→22:00)
[2022-11-06] MEDS: ENOXAPARIN NA (PORCINE) 40 MG/0.4 ML DISP.SYRIN SQ SCH (09:20)
[2022-11-06] MEDS: LOSARTAN POTASSIUM 50 MG TABLET PO SCH (09:20)
[2022-11-06 09:44] LABS: CALCIUM 9.2 mg/dL (8.5-10.1)
[2022-11-06 09:45] LABS: ALBUMIN 2.5 g/dl (3.4-5.0); BLOOD UREA NITROGEN 17.2 mg/dL (7-18)
[2022-11-06 09:46] LABS: MAGNESIUM 1.5 mg/dL (1.8-2.4)
[2022-11-06 09:48] LABS: CREATININE 0.7 mg/dL (0.55-1.3); PHOSPHOROUS 2.5 mg/dL (2.5-4.9)
[2022-11-06 09:50] LABS: BILIRUBIN,TOTAL 0.7 mg/dL (0.2-1); TOT PROT 5.1 g/dl (6.4-8.2)
[2022-11-06] MEDS ORDERED: MAGNESIUM SULF 50% (8.12 MEQ/2 ML-1 GM VIAL) IVPB ONE (10:14)
[2022-11-06] MEDS ORDERED: MAGNESIUM OXIDE 400 MG TABLET (FP) PO ONE (11:31)
[2022-11-07] MEDS: INSULIN SLIDING SCALE (NOVOLOG) 1 VIAL SQ SCH ×3 (06:12→17:29)
[2022-11-07] MEDS: ENOXAPARIN NA (PORCINE) 40 MG/0.4 ML DISP.SYRIN SQ SCH (10:23)
[2022-11-07] MEDS: LOSARTAN POTASSIUM 50 MG TABLET PO SCH (10:23)
[2022-11-07] MEDS: POLYETHYLENE GLYCOL (HEALTHYLAX) 3350 17 GM PACKET PO SCH (10:23)
[2022-11-07] MEDS: FINASTERIDE 5 MG TABLET (FP) PO SCH (10:23)
[2022-11-07] MEDS: TAMSULOSIN HCL 0.4 MG CAP PO SCH ×2 (10:23→20:41)
[2022-11-08] MEDS: INSULIN SLIDING SCALE (NOVOLOG) 1 VIAL SQ SCH ×3 (06:46→18:37)
[2022-11-08] MEDS: LOSARTAN POTASSIUM 50 MG TABLET PO SCH (10:11)
[2022-11-08] MEDS: FINASTERIDE 5 MG TABLET (FP) PO SCH (10:11)
[2022-11-08] MEDS: TAMSULOSIN HCL 0.4 MG CAP PO SCH ×2 (10:11→20:34)
[2022-11-08] MEDS: ENOXAPARIN NA (PORCINE) 40 MG/0.4 ML DISP.SYRIN SQ SCH (10:11)
[2022-11-08] MEDS: POLYETHYLENE GLYCOL (HEALTHYLAX) 3350 17 GM PACKET PO SCH (10:12)
[2022-11-08 12:03] LABS: BASO % 0.2 % (0-2.0); EOS % 1.2 % (0-4.5); HEMATOCRIT 30.2 % (35.4-49); HEMOGLOBIN 10.4 GM/dL (11.7-16.9); LYMPH % 10.2 % (8-40); MCH 30.6 pg (25.7-33.7); MCHC 34.5 g/dl (32.0-35.9); MEAN CELL VOLUME 88.7 fl (80-96); MEAN PLT VOLUME 8.1 fl (7.5-11.1); MONO % 5.1 % (3.8-10.2); NEUT % 83.3 % (42.8-82.8); PLATELET COUNT 328 10^3/uL (134-434); RDW 12.9 % (11.9-15.9); WHITE BLOOD COUNT 8.6 K/mm3 (4.0-10.0)
[2022-11-08 12:07] LABS: ALBUMIN 2.5 g/dl (3.4-5.0)
[2022-11-08 12:08] LABS: BLOOD UREA NITROGEN 12.3 mg/dL (7-18); CALCIUM 9.2 mg/dL (8.5-10.1); MAGNESIUM 1.6 mg/dL (1.8-2.4)
[2022-11-08 12:09] LABS: TOT PROT 5.3 g/dl (6.4-8.2)
[2022-11-08 12:10] LABS: CREATININE 0.8 mg/dL (0.55-1.3)
[2022-11-08 12:21] LABS: BILIRUBIN,TOTAL 0.6 mg/dL (0.2-1)
[2022-11-08] MEDS ORDERED: NAPH,MB-DB/K PH,MBDB POWDER PACKET PO ONE (16:00)
[2022-11-08] MEDS ORDERED: MAGNESIUM OXIDE 400 MG TABLET (FP) PO ONE (16:00)
[2022-11-08] MEDS ORDERED: MAGNESIUM SULF 50% (8.12 MEQ/2 ML-1 GM VIAL) IVPB ONE (17:11)
[2022-11-08] MEDS: POTASSIUM CHLORIDE TABS 20 MEQ TABLET.ER (FP) PO SCH (18:37)
[2022-11-09] MEDS: INSULIN SLIDING SCALE (NOVOLOG) 1 VIAL SQ SCH ×3 (06:14→18:26)
[2022-11-09 09:33] LABS: BASO % 0.3 % (0-2.0); EOS % 1.5 % (0-4.5); HEMATOCRIT 32.1 % (35.4-49); LYMPH % 12.6 % (8-40); MCH 30.3 pg (25.7-33.7); MCHC 34.1 g/dl (32.0-35.9); MEAN CELL VOLUME 88.9 fl (80-96); MEAN PLT VOLUME 7.9 fl (7.5-11.1); MONO % 5.3 % (3.8-10.2); NEUT % 80.3 % (42.8-82.8); PLATELET COUNT 338 10^3/uL (134-434); RBC 3.61 M/mm3 (4.00-5.60); RDW 12.8 % (11.9-15.9); WHITE BLOOD COUNT 7.1 K/mm3 (4.0-10.0)
[2022-11-09 10:29] LABS: CALCIUM 9.3 mg/dL (8.5-10.1)
[2022-11-09 10:30] LABS: ALBUMIN 2.6 g/dl (3.4-5.0); BLOOD UREA NITROGEN 11.9 mg/dL (7-18); MAGNESIUM 1.7 mg/dL (1.8-2.4)
[2022-11-09 10:31] LABS: PHOSPHOROUS 2.4 mg/dL (2.5-4.9)
[2022-11-09 10:32] LABS: CREATININE 0.8 mg/dL (0.55-1.3)
[2022-11-09 10:33] LABS: BILIRUBIN,TOTAL 0.8 mg/dL (0.2-1); TOT PROT 5.5 g/dl (6.4-8.2)
[2022-11-09] MEDS: POTASSIUM CHLORIDE TABS 20 MEQ TABLET.ER (FP) PO SCH (12:20)
[2022-11-09] MEDS: LOSARTAN POTASSIUM 50 MG TABLET PO SCH (12:20)
[2022-11-09] MEDS: TAMSULOSIN HCL 0.4 MG CAP PO SCH ×2 (12:20→20:25)
[2022-11-09] MEDS: POLYETHYLENE GLYCOL (HEALTHYLAX) 3350 17 GM PACKET PO SCH (12:20)
[2022-11-09] MEDS: FINASTERIDE 5 MG TABLET (FP) PO SCH (12:20)
[2022-11-09] MEDS ORDERED: NAPH,MB-DB/K PH,MBDB POWDER PACKET PO ONE ×2 (13:49→18:30)
[2022-11-09] MEDS ORDERED: MAGNESIUM SULF 50% (8.12 MEQ/2 ML-1 GM VIAL) IVPB ONE (14:15)
[2022-11-10] MEDS: INSULIN SLIDING SCALE (NOVOLOG) 1 VIAL SQ SCH ×3 (06:13→17:38)
[2022-11-10] MEDS: TAMSULOSIN HCL 0.4 MG CAP PO SCH ×2 (09:46→20:25)
[2022-11-10] MEDS: FINASTERIDE 5 MG TABLET (FP) PO SCH (09:47)
[2022-11-10] MEDS: POTASSIUM CHLORIDE TABS 20 MEQ TABLET.ER (FP) PO SCH (09:48)
[2022-11-10] MEDS: LOSARTAN POTASSIUM 50 MG TABLET PO SCH (09:48)
[2022-11-10] MEDS: POLYETHYLENE GLYCOL (HEALTHYLAX) 3350 17 GM PACKET PO SCH (09:49)
[2022-11-10 10:01] LABS: HEMATOCRIT 29.6 % (35.4-49); HEMOGLOBIN 10.2 GM/dL (11.7-16.9); MCH 30.1 pg (25.7-33.7); MCHC 34.3 g/dl (32.0-35.9); MEAN CELL VOLUME 87.9 fl (80-96); MEAN PLT VOLUME 8.2 fl (7.5-11.1); PLATELET COUNT 331 10^3/uL (134-434); RBC 3.37 M/mm3 (4.00-5.60); RDW 12.6 % (11.9-15.9); WHITE BLOOD COUNT 6.3 K/mm3 (4.0-10.0)
[2022-11-10 10:39] LABS: CALCIUM 9.1 mg/dL (8.5-10.1); MAGNESIUM 1.9 mg/dL (1.8-2.4)
[2022-11-10 10:40] LABS: BLOOD UREA NITROGEN 12.4 mg/dL (7-18)
[2022-11-10 10:42] LABS: CREATININE 0.7 mg/dL (0.55-1.3)
[2022-11-10 10:43] LABS: PHOSPHOROUS 2.6 mg/dL (2.5-4.9)
[2022-11-10] MEDS ORDERED: SUCCINYLCHOLINE CHLORIDE 200 MG/10 ML SYRINGE ONE (14:22)
[2022-11-10] MEDS ORDERED: ETOMIDATE 20 MG/10 ML VIAL IVPUSH ONE (14:22)
[2022-11-10] MEDS ORDERED: ONDANSETRON 4 MG/2 ML VIAL ONE (14:22)
[2022-11-10] MEDS ORDERED: PROPOFOL 20 ML ONE (14:22)
[2022-11-10] MEDS ORDERED: ceFAZolin SODIUM 1 GM VIAL ONE (14:23)
[2022-11-10] MEDS ORDERED: SODIUM CHLORIDE 0.9% P/F 10 ML VIAL IJ ONE (14:26)
[2022-11-10] MEDS ORDERED: ONDANSETRON 4 MG/2 ML VIAL IVPUSH PRN ×2 (14:36→16:13)
[2022-11-10] MEDS ORDERED: LACTATED RINGERS SOLUTION 1,000 ML IV SCH ×2 (14:45→16:13)
[2022-11-10] MEDS ORDERED: ceFAZolin SODIUM 1 GM VIAL IVPB ONE (14:50)
[2022-11-10] MEDS ORDERED: LIDOCAINE HCL 2% JELLY 10 ML CARTRIDGE TP ONE (14:55)
[2022-11-10] MEDS ORDERED: MELATONIN 5 MG TABLETS PO PRN (16:13)
[2022-11-10] MEDS: BETHANECHOL CHLORIDE 25 MG TABLET PO SCH ×2 (17:41→22:31)
[2022-11-10 20:25] VITALS: RESP 18
[2022-11-11] MEDS: INSULIN SLIDING SCALE (NOVOLOG) 1 VIAL SQ SCH ×3 (06:07→17:33)
[2022-11-11] MEDS: LOSARTAN POTASSIUM 50 MG TABLET PO SCH (09:39)
[2022-11-11] MEDS: TAMSULOSIN HCL 0.4 MG CAP PO SCH ×2 (09:39→22:08)
[2022-11-11] MEDS: FINASTERIDE 5 MG TABLET (FP) PO SCH (09:39)
[2022-11-11] MEDS: POLYETHYLENE GLYCOL (HEALTHYLAX) 3350 17 GM PACKET PO SCH (09:40)
[2022-11-11] MEDS: BETHANECHOL CHLORIDE 25 MG TABLET PO SCH ×4 (09:40→22:08)
[2022-11-11 09:43] LABS: HEMOGLOBIN 10.5 GM/dL (11.7-16.9); MCH 30.1 pg (25.7-33.7); MCHC 33.8 g/dl (32.0-35.9); MEAN PLT VOLUME 8.1 fl (7.5-11.1); PLATELET COUNT 321 10^3/uL (134-434); RBC 3.48 M/mm3 (4.00-5.60); RDW 12.7 % (11.9-15.9); WHITE BLOOD COUNT 6.7 K/mm3 (4.0-10.0)
[2022-11-11] MEDS ORDERED: POTASSIUM CHLORIDE TABS 20 MEQ TABLET.ER (FP) PO SCH (10:00)
[2022-11-11 10:09] LABS: BLOOD UREA NITROGEN 13.1 mg/dL (7-18); CALCIUM 9.5 mg/dL (8.5-10.1)
[2022-11-11 10:13] LABS: CREATININE 0.9 mg/dL (0.55-1.3)
[2022-11-12] MEDS: INSULIN SLIDING SCALE (NOVOLOG) 1 VIAL SQ SCH ×2 (06:49→11:54)
[2022-11-12 07:40] VITALS: BP 132/66; PULSE 67; TEMP 98
[2022-11-12] MEDS ORDERED: ENOXAPARIN NA (PORCINE) 40 MG/0.4 ML DISP.SYRIN SQ SCH (10:00)
[2022-11-12 10:20] LABS: HEMATOCRIT 29.9 % (35.4-49); HEMOGLOBIN 10.2 GM/dL (11.7-16.9); MCH 30.2 pg (25.7-33.7); MEAN CELL VOLUME 88.8 fl (80-96); MEAN PLT VOLUME 8.3 fl (7.5-11.1); PLATELET COUNT 333 10^3/uL (134-434); RBC 3.36 M/mm3 (4.00-5.60); RDW 12.7 % (11.9-15.9); WHITE BLOOD COUNT 5.6 K/mm3 (4.0-10.0)
[2022-11-12 10:51] LABS: CALCIUM 9.4 mg/dL (8.5-10.1)
[2022-11-12 10:53] LABS: BLOOD UREA NITROGEN 12.7 mg/dL (7-18)
[2022-11-12 10:55] LABS: CREATININE 0.9 mg/dL (0.55-1.3)
[2022-11-12] MEDS: LOSARTAN POTASSIUM 50 MG TABLET PO SCH (11:51)
[2022-11-12] MEDS: FINASTERIDE 5 MG TABLET (FP) PO SCH (11:51)
[2022-11-12] MEDS: TAMSULOSIN HCL 0.4 MG CAP PO SCH (11:51)
[2022-11-12] MEDS: BETHANECHOL CHLORIDE 25 MG TABLET PO SCH (11:51)
[2022-11-12] MEDS: POLYETHYLENE GLYCOL (HEALTHYLAX) 3350 17 GM PACKET PO SCH (11:51)
== END 2022-11-12 15:16 | DRG 391 ==
LOC: JER 14:09 → JERBED 20:18 → OBSVTOIN 23:03 → J5S 10-28 15:23
PROVIDERS: ADMIT Internal Medicine; ATTEND Internal Medicine
PROC: 0HQ1XZZ Repair Face Skin, External Approach (ICD-10-PCS; principal; 2022-10-27)
PROC: 0T7D8ZZ Dilation of Urethra, Via Natural or Artificial Opening Endoscopic (ICD-10-PCS; 2022-11-10 14:00)
DX: A09 Infectious gastroenteritis and colitis, unspecified (principal); G93.41 Metabolic encephalopathy; K56.7 Ileus, unspecified; I45.10 Unspecified right bundle-branch block; E11.9 Type 2 diabetes mellitus without complications; I10 Essential (primary) hypertension; I35.0 Nonrheumatic aortic (valve) stenosis; R55 Syncope and collapse; K62.89 Other specified diseases of anus and rectum; D50.9 Iron deficiency anemia, unspecified; S01.111A Laceration without foreign body of right eyelid and periocular area, initial encounter; E83.42 Hypomagnesemia; M79.601 Pain in right arm; K59.00 Constipation, unspecified; E83.39 Other disorders of phosphorus metabolism; K40.90 Unilateral inguinal hernia, without obstruction or gangrene, not specified as recurrent; E83.52 Hypercalcemia; R10.2 Pelvic and perineal pain; F41.8 Other specified anxiety disorders; E87.5 Hyperkalemia; C61 Malignant neoplasm of prostate; N40.1 Benign prostatic hyperplasia with lower urinary tract symptoms; R33.8 Other retention of urine; Y92.238 Other place in hospital as the place of occurrence of the external cause; N35.919 Unspecified urethral stricture, male, unspecified site; E87.6 Hypokalemia; N31.9 Neuromuscular dysfunction of bladder, unspecified; N50.89 Other specified disorders of the male genital organs; W18.30XA Fall on same level, unspecified, initial encounter
CPT/HCPCS: 0241U-QW; 36415; 70450-TC; 70486-TC; 71045-TC-FY; 72125-TC; 73030-TC-RT-FY; 73060-TC-RT-FY; 73090-TC-RT-FY; 73110-TC-RT-FY; 73130-TC-RT-FY; 73610-TC-RT-FY; 73630-TC-RT-FY; 73700-TC-RT; 74018-TC-FY; 74177-TC; 80048; 80053; 81003; 82248; 82306; 82310; 82728; 82962; 83036; 83540; 83550; 83735; 83970; 84100; 84443; 84484; 84550; 85025; 85027; 85045; 87045; 87046; 87086; 93005; 93010; 93306-TC; 93971-TC; 94010; 94760; 94761; 97116-GP; 99285-25; C9803-CS; G0378; J1756; Q9967; U0003; U0005

== ENCOUNTER 2022-12-15 13:17 | Emergency (ER) | payer OTHER, BC ==
[2022-12-15 13:35] VITALS: BMI 25.1
[2022-12-15 15:12] LABS: BASO % 0.4 % (0-2.0); EOS % 2.9 % (0-4.5); HEMATOCRIT 33.5 % (35.4-49); HEMOGLOBIN 11.2 GM/dL (11.7-16.9); LYMPH % 13.8 % (8-40); MCH 28.6 pg (25.7-33.7); MCHC 33.5 g/dl (32.0-35.9); MEAN CELL VOLUME 85.2 fl (80-96); MEAN PLT VOLUME 8.1 fl (7.5-11.1); MONO % 6.1 % (3.8-10.2); NEUT % 76.8 % (42.8-82.8); PLATELET COUNT 295 10^3/uL (134-434); RBC 3.94 M/mm3 (4.00-5.60); RDW 13.5 % (11.9-15.9); WHITE BLOOD COUNT 6.2 K/mm3 (4.0-10.0)
[2022-12-15 15:18] LABS: INR 1.12 (0.83-1.09)
[2022-12-15 15:21] LABS: ACTIVATED PTT 21.6 SECONDS (25.2-36.5)
[2022-12-15 15:29] LABS: CHLORIDE 102 mmol/L (98-107); SODIUM 133 mmol/L (136-145)
[2022-12-15 15:31] LABS: ALBUMIN 2.8 g/dl (3.4-5.0); BLOOD UREA NITROGEN 16.5 mg/dL (7-18); CO2 25 mmol/L (21-32); GLUCOSE,RANDOM 207 mg/dL (74-106); MAGNESIUM 1.8 mg/dL (1.8-2.4)
[2022-12-15 15:34] LABS: CREATININE 1.2 mg/dL (0.55-1.3); SGOT/AST 56 U/L (15-37); SGPT/ALT 17 U/L (13-61)
[2022-12-15 15:36] LABS: BILIRUBIN,TOTAL 1.1 mg/dL (0.2-1); TOT PROT 6.4 g/dl (6.4-8.2)
[2022-12-15 15:37] LABS: ALK PHOS 96 U/L (45-117); ANION GAP 6 MMOL/L (8-16)
[2022-12-15 15:39] LABS: EPI CELLS 4 /uL (0-25.1); HYALINE CASTS 1 /uL (0-3.1); URINE APPEARANCE CLEAR; URINE BACTERIA 2 /uL (0-1359); URINE BILIRUBIN NEGATIVE (NEGATIVE); URINE COLOR YELLOW; URINE GLUCOSE (UA) NEGATIVE (NEGATIVE); URINE KETONE NEGATIVE (NEGATIVE); URINE LEUK ESTERASE NEGATIVE (NEGATIVE); URINE NITRITE NEGATIVE (NEGATIVE); URINE PROTEIN 2+ (NEGATIVE); URINE RBC 21 /uL (0-23.9); URINE UROBILINOGEN 0.2 mg/dL (0.2-1.0); URINE WBC 30 /uL (0-25.8)
[2022-12-15 16:01] LABS: LACTIC ACID 3.5 mmol/L (0.4-2.0)
[2022-12-15] MEDS ORDERED: SODIUM CHLORIDE 500 ML IV STA (16:44)
[2022-12-15 20:47] VITALS: RESP 19; TEMP 97.9
[2022-12-15 23:11] VITALS: BP 132/85; PULSE 78
== END 2022-12-16 00:41 | disposition home or self-care (01) ==
LOC: JER 13:17
DX: T83.091A Other mechanical complication of indwelling urethral catheter, initial encounter (principal)
CPT/HCPCS: 36415; 71045-TC-FY; 74176-TC; 80053; 81003; 83605; 83735; 84132; 85025; 85610; 85730; 87086; 93005; 93010; 99285-25

== ENCOUNTER 2023-03-31 13:13 | Inpatient (IN) | payer OTHER, BC ==
[2023-03-31 14:12] LABS: EPI CELLS 7 /uL (0-25.1); HYALINE CASTS 2 /uL (0-3.1); URINE APPEARANCE CLEAR; URINE BACTERIA 104 /uL (0-1359); URINE BILIRUBIN NEGATIVE (NEGATIVE); URINE COLOR YELLOW; URINE GLUCOSE (UA) NEGATIVE (NEGATIVE); URINE KETONE NEGATIVE (NEGATIVE); URINE LEUK ESTERASE 3+ (NEGATIVE); URINE NITRITE NEGATIVE (NEGATIVE); URINE PROTEIN 2+ (NEGATIVE); URINE RBC 130 /uL (0-23.9); URINE WBC 1437 /uL (0-25.8)
[2023-03-31] MEDS ORDERED: ACETAMINOPHEN 1000 MG/100 ML BAG IVPB ONE (14:16)
[2023-03-31] MEDS ORDERED: VANCOMYCIN 1 GM in D5W (PRE-DOCKED) 1,000 MG/250 ML (RESTRICTED TO ID ONLY IVPB ONE (14:22)
[2023-03-31] MEDS ORDERED: PIPERACILLIN/TAZOB 4.5 GM 4.5 GM in DEXTROSE 5%-WATER 100 ML IVPB ONE (14:22)
[2023-03-31] MEDS ORDERED: PIPERACILLIN/TAZOB 4.5 GM 4.5 GM/100 ML BAG IVPB ONE (15:01)
[2023-03-31] MEDS ORDERED: ACETAMINOPHEN INJECTION 100 ML IVPB ONE (15:01)
[2023-03-31] MEDS ORDERED: VANCOMYCIN/WATER FOR INJ (PEG) 1,000 MG/200 ML BAG IVPB ONE (15:01)
[2023-03-31 15:18] LABS: BASO % 0.2 % (0-2.0); EOS % 1.2 % (0-4.5); HEMATOCRIT 36.4 % (35.4-49); HEMOGLOBIN 12.2 GM/dL (11.7-16.9); LYMPH % 10.9 % (8-40); MCH 29.3 pg (25.7-33.7); MCHC 33.4 g/dl (32.0-35.9); MEAN CELL VOLUME 87.7 fl (80-96); MEAN PLT VOLUME 8.2 fl (7.5-11.1); MONO % 6.9 % (3.8-10.2); NEUT % 80.8 % (42.8-82.8); PLATELET COUNT 227 10^3/uL (134-434); RBC 4.15 M/mm3 (4.00-5.60); RDW 13.1 % (11.9-15.9); WHITE BLOOD COUNT 8.7 K/mm3 (4.0-10.0)
[2023-03-31 15:51] LABS: ERYTHROCYTE SEDIMENTATION RATE 36 mm/hr (0-20)
[2023-03-31 15:53] LABS: POTASSIUM 5.1 mmol/L (3.5-5.1)
[2023-03-31 15:55] LABS: ALBUMIN 3.4 g/dl (3.4-5.0); CALCIUM 10.2 mg/dL (8.5-10.1)
[2023-03-31 15:58] LABS: CREATININE 0.9 mg/dL (0.55-1.3)
[2023-03-31 16:00] LABS: BILIRUBIN,TOTAL 1.3 mg/dL (0.2-1); TOT PROT 6.6 g/dl (6.4-8.2)
[2023-03-31] MEDS ORDERED: ACETAMINOPHEN 1000 MG/100 ML BAG IVPB PRN (18:34)
[2023-03-31 19:11] VITALS: BMI 27.8
[2023-03-31] MEDS: INSULIN SLIDING SCALE (NOVOLOG) 1 VIAL SQ SCH (21:55)
[2023-04-01] MEDS: CEFAZOLIN SODIUM 2 GM in DEXTROSE 5%-WATER 100 ML IVPB SCH ×3 (01:40→18:10)
[2023-04-01] MEDS: INSULIN SLIDING SCALE (NOVOLOG) 1 VIAL SQ SCH ×4 (06:54→23:18)
[2023-04-01 09:35] LABS: BASO % 0.3 % (0-2.0); HEMATOCRIT 34.7 % (35.4-49); HEMOGLOBIN 12.1 GM/dL (11.7-16.9); LYMPH % 13.1 % (8-40); MCH 29.9 pg (25.7-33.7); MEAN CELL VOLUME 85.5 fl (80-96); MEAN PLT VOLUME 8.1 fl (7.5-11.1); MONO % 5.7 % (3.8-10.2); NEUT % 76.9 % (42.8-82.8); PLATELET COUNT 211 10^3/uL (134-434); RBC 4.06 M/mm3 (4.00-5.60); RDW 13.1 % (11.9-15.9); WHITE BLOOD COUNT 6.8 K/mm3 (4.0-10.0)
[2023-04-01 09:39] LABS: POTASSIUM 4.7 mmol/L (3.5-5.1)
[2023-04-01 09:42] LABS: CALCIUM 10.3 mg/dL (8.5-10.1)
[2023-04-01 09:43] LABS: ALBUMIN 3.1 g/dl (3.4-5.0); BLOOD UREA NITROGEN 13.8 mg/dL (7-18)
[2023-04-01 09:45] LABS: MAGNESIUM 1.7 mg/dL (1.8-2.4)
[2023-04-01 09:46] LABS: CREATININE 0.8 mg/dL (0.55-1.3); PHOSPHOROUS 3.7 mg/dL (2.5-4.9)
[2023-04-01 09:47] LABS: BILIRUBIN,TOTAL 1.3 mg/dL (0.2-1)
[2023-04-01 09:48] LABS: TOT PROT 6.2 g/dl (6.4-8.2)
[2023-04-01] MEDS ORDERED: CEFTRIAXONE 1 GM in DEXTROSE 5%-WATER - 50 ML IVPB SCH (10:00)
[2023-04-01] MEDS: ENOXAPARIN NA (PORCINE) 40 MG/0.4 ML DISP.SYRIN SQ SCH (10:42)
[2023-04-01] MEDS: ASPIRIN 81 MG CHEWABLE TABLETS PO SCH (10:43)
[2023-04-01] MEDS: ESCITALOPRAM OXALATE 10 MG TABLET PO SCH (10:43)
[2023-04-01] MEDS ORDERED: INSULIN (NOVOLOG) ASPART 100 UNITS/ML 10ML VIAL ONE (11:57)
[2023-04-01] MEDS: NAPROXEN 250 MG TABLET PO SCH ×2 (12:01→23:11)
[2023-04-01] MEDS ORDERED: ZOLPIDEM TARTRATE 5 MG TABLET PO PRN (15:01)
[2023-04-02] MEDS ORDERED: LORazepam 2 MG/ML SDV VIAL IVPUSH ONE (00:48)
[2023-04-02] MEDS: CEFAZOLIN SODIUM 2 GM in DEXTROSE 5%-WATER 100 ML IVPB SCH ×3 (01:06→17:45)
[2023-04-02] MEDS: INSULIN SLIDING SCALE (NOVOLOG) 1 VIAL SQ SCH ×4 (06:56→21:57)
[2023-04-02 09:52] LABS: BASO % 0.4 % (0-2.0); EOS % 6.9 % (0-4.5); HEMATOCRIT 35.7 % (35.4-49); HEMOGLOBIN 12.4 GM/dL (11.7-16.9); LYMPH % 19.3 % (8-40); MCH 29.8 pg (25.7-33.7); MCHC 34.9 g/dl (32.0-35.9); MEAN CELL VOLUME 85.4 fl (80-96); MEAN PLT VOLUME 7.8 fl (7.5-11.1); MONO % 5.9 % (3.8-10.2); NEUT % 67.5 % (42.8-82.8); PLATELET COUNT 217 10^3/uL (134-434); RBC 4.18 M/mm3 (4.00-5.60); RDW 13.2 % (11.9-15.9); WHITE BLOOD COUNT 5.5 K/mm3 (4.0-10.0)
[2023-04-02 10:20] LABS: CALCIUM 10.3 mg/dL (8.5-10.1)
[2023-04-02 10:21] LABS: ALBUMIN 3.1 g/dl (3.4-5.0); BLOOD UREA NITROGEN 16.1 mg/dL (7-18)
[2023-04-02 10:24] LABS: CREATININE 0.9 mg/dL (0.55-1.3)
[2023-04-02 10:26] LABS: BILIRUBIN,TOTAL 0.9 mg/dL (0.2-1); TOT PROT 6.2 g/dl (6.4-8.2)
[2023-04-02] MEDS: ESCITALOPRAM OXALATE 10 MG TABLET PO SCH (10:29)
[2023-04-02] MEDS: ASPIRIN 81 MG CHEWABLE TABLETS PO SCH (10:29)
[2023-04-02] MEDS: POLYETHYLENE GLYCOL (HEALTHYLAX) 3350 17 GM PACKET PO SCH (10:29)
[2023-04-02] MEDS: NAPROXEN 250 MG TABLET PO SCH ×2 (10:30→21:56)
[2023-04-02] MEDS: ENOXAPARIN NA (PORCINE) 40 MG/0.4 ML DISP.SYRIN SQ SCH (10:33)
[2023-04-03] MEDS: CEFAZOLIN SODIUM 2 GM in DEXTROSE 5%-WATER 100 ML IVPB SCH ×2 (02:57→10:55)
[2023-04-03] MEDS: INSULIN SLIDING SCALE (NOVOLOG) 1 VIAL SQ SCH ×4 (06:43→22:22)
[2023-04-03 08:34] LABS: BASO % 0.5 % (0-2.0); EOS % 7.5 % (0-4.5); HEMOGLOBIN 12.2 GM/dL (11.7-16.9); LYMPH % 22.2 % (8-40); MCH 29.5 pg (25.7-33.7); MCHC 33.9 g/dl (32.0-35.9); MEAN CELL VOLUME 87.1 fl (80-96); MEAN PLT VOLUME 8.1 fl (7.5-11.1); MONO % 6.5 % (3.8-10.2); NEUT % 63.3 % (42.8-82.8); PLATELET COUNT 237 10^3/uL (134-434); RBC 4.13 M/mm3 (4.00-5.60); RDW 12.9 % (11.9-15.9); WHITE BLOOD COUNT 5.7 K/mm3 (4.0-10.0)
[2023-04-03 08:53] LABS: POTASSIUM 4.6 mmol/L (3.5-5.1)
[2023-04-03 08:55] LABS: CALCIUM 10.1 mg/dL (8.5-10.1)
[2023-04-03 08:56] LABS: BLOOD UREA NITROGEN 16.2 mg/dL (7-18)
[2023-04-03 08:59] LABS: CREATININE 0.9 mg/dL (0.55-1.3)
[2023-04-03] MEDS: ENOXAPARIN NA (PORCINE) 40 MG/0.4 ML DISP.SYRIN SQ SCH (10:53)
[2023-04-03] MEDS: NAPROXEN 250 MG TABLET PO SCH ×2 (10:54→22:23)
[2023-04-03] MEDS: ASPIRIN 81 MG CHEWABLE TABLETS PO SCH (10:54)
[2023-04-03] MEDS: ESCITALOPRAM OXALATE 10 MG TABLET PO SCH (10:54)
[2023-04-03] MEDS: POLYETHYLENE GLYCOL (HEALTHYLAX) 3350 17 GM PACKET PO SCH (10:55)
[2023-04-03] MEDS ORDERED: ERTAPENEM SODIUM 1 GM in SODIUM CHLORIDE 50 ML IVPB SCH (12:45)
[2023-04-04] MEDS: INSULIN SLIDING SCALE (NOVOLOG) 1 VIAL SQ SCH ×4 (06:02→21:42)
[2023-04-04 09:03] LABS: BASO % 0.3 % (0-2.0); EOS % 7.3 % (0-4.5); HEMATOCRIT 35.2 % (35.4-49); HEMOGLOBIN 11.8 GM/dL (11.7-16.9); LYMPH % 23.9 % (8-40); MCH 29.3 pg (25.7-33.7); MCHC 33.6 g/dl (32.0-35.9); MEAN CELL VOLUME 87.2 fl (80-96); MEAN PLT VOLUME 8.1 fl (7.5-11.1); MONO % 6.3 % (3.8-10.2); NEUT % 62.2 % (42.8-82.8); PLATELET COUNT 239 10^3/uL (134-434); RBC 4.04 M/mm3 (4.00-5.60); RDW 13.2 % (11.9-15.9); WHITE BLOOD COUNT 5.5 K/mm3 (4.0-10.0)
[2023-04-04 09:10] LABS: INR 1.06 (0.83-1.09); PROTHROMBIN TIME (PATIENT) 12.3 SEC (9.7-13.0)
[2023-04-04 09:11] LABS: ACTIVATED PTT 33.5 SECONDS (25.2-36.5)
[2023-04-04 09:19] LABS: POTASSIUM 4.9 mmol/L (3.5-5.1)
[2023-04-04 09:23] LABS: ALBUMIN 3.2 g/dl (3.4-5.0); BLOOD UREA NITROGEN 15.4 mg/dL (7-18); CALCIUM 9.9 mg/dL (8.5-10.1); MAGNESIUM 1.9 mg/dL (1.8-2.4)
[2023-04-04 09:26] LABS: CREATININE 0.8 mg/dL (0.55-1.3); PHOSPHOROUS 2.8 mg/dL (2.5-4.9)
[2023-04-04 09:28] LABS: BILIRUBIN,TOTAL 0.8 mg/dL (0.2-1); TOT PROT 6.1 g/dl (6.4-8.2)
[2023-04-04] MEDS: POLYETHYLENE GLYCOL (HEALTHYLAX) 3350 17 GM PACKET PO SCH (10:16)
[2023-04-04] MEDS: ENOXAPARIN NA (PORCINE) 40 MG/0.4 ML DISP.SYRIN SQ SCH (10:16)
[2023-04-04] MEDS: CEFTRIAXONE 1 GM in DEXTROSE 5%-WATER - 50 ML IVPB SCH (10:16)
[2023-04-04] MEDS: ASPIRIN 81 MG CHEWABLE TABLETS PO SCH (10:17)
[2023-04-04] MEDS: NAPROXEN 250 MG TABLET PO SCH ×2 (10:17→21:51)
[2023-04-04] MEDS: ESCITALOPRAM OXALATE 10 MG TABLET PO SCH (10:18)
[2023-04-04] MEDS ORDERED: INSULIN (NOVOLOG) ASPART 100 UNITS/ML 10ML VIAL ONE (11:04)
[2023-04-04] MEDS ORDERED: ARTIFICIAL TEARS (POLYVINYL ALCOHOL) OPTH DROPS OU PRN (16:54)
[2023-04-05] MEDS: INSULIN SLIDING SCALE (NOVOLOG) 1 VIAL SQ SCH ×4 (06:09→23:02)
[2023-04-05] MEDS: ASPIRIN 81 MG CHEWABLE TABLETS PO SCH (09:46)
[2023-04-05] MEDS: POLYETHYLENE GLYCOL (HEALTHYLAX) 3350 17 GM PACKET PO SCH (09:46)
[2023-04-05] MEDS: ESCITALOPRAM OXALATE 10 MG TABLET PO SCH (09:46)
[2023-04-05] MEDS: NAPROXEN 250 MG TABLET PO SCH ×2 (09:47→22:58)
[2023-04-05] MEDS: CEFTRIAXONE 1 GM in DEXTROSE 5%-WATER - 50 ML IVPB SCH (09:50)
[2023-04-05] MEDS: ENOXAPARIN NA (PORCINE) 40 MG/0.4 ML DISP.SYRIN SQ SCH (09:51)
[2023-04-05] MEDS ORDERED: MELATONIN 5 MG TABLETS PO PRN (22:00)
[2023-04-06] MEDS: INSULIN SLIDING SCALE (NOVOLOG) 1 VIAL SQ SCH ×4 (06:26→21:23)
[2023-04-06] MEDS: ASPIRIN 81 MG CHEWABLE TABLETS PO SCH (09:32)
[2023-04-06] MEDS: ENOXAPARIN NA (PORCINE) 40 MG/0.4 ML DISP.SYRIN SQ SCH (09:32)
[2023-04-06] MEDS: CEFTRIAXONE 1 GM in DEXTROSE 5%-WATER - 50 ML IVPB SCH (09:32)
[2023-04-06] MEDS: ESCITALOPRAM OXALATE 10 MG TABLET PO SCH (09:32)
[2023-04-06] MEDS: NAPROXEN 250 MG TABLET PO SCH (09:32)
[2023-04-06] MEDS: POLYETHYLENE GLYCOL (HEALTHYLAX) 3350 17 GM PACKET PO SCH (09:33)
[2023-04-06] MEDS ORDERED: ROSUVASTATIN CA 5 MG TABLET PO SCH ×3 (14:30→22:00)
[2023-04-07] MEDS: INSULIN SLIDING SCALE (NOVOLOG) 1 VIAL SQ SCH ×4 (06:39→22:41)
[2023-04-07 07:25] LABS: CHOLESTEROL 148 mg/dL (50-200)
[2023-04-07 07:27] LABS: LDL CHOLESTEROL (ONLY SJRH) 75 mg/dL (5-100)
[2023-04-07 07:28] LABS: HDL CHOLESTEROL 63 mg/dL (40-60)
[2023-04-07] MEDS: ASPIRIN 81 MG CHEWABLE TABLETS PO SCH (11:05)
[2023-04-07] MEDS: ENOXAPARIN NA (PORCINE) 40 MG/0.4 ML DISP.SYRIN SQ SCH (11:06)
[2023-04-07] MEDS: ESCITALOPRAM OXALATE 10 MG TABLET PO SCH (11:06)
[2023-04-07] MEDS: POLYETHYLENE GLYCOL (HEALTHYLAX) 3350 17 GM PACKET PO SCH (11:06)
[2023-04-08] MEDS: INSULIN SLIDING SCALE (NOVOLOG) 1 VIAL SQ SCH ×2 (06:12→11:35)
[2023-04-08] MEDS: POLYETHYLENE GLYCOL (HEALTHYLAX) 3350 17 GM PACKET PO SCH ×2 (10:15→10:41)
[2023-04-08] MEDS: ESCITALOPRAM OXALATE 10 MG TABLET PO SCH (10:15)
[2023-04-08] MEDS: ASPIRIN 81 MG CHEWABLE TABLETS PO SCH (10:15)
[2023-04-08 13:25] VITALS: BP 118/72; PULSE 61; RESP 20; TEMP 98.3
[2023-04-09] MEDS ORDERED: ENOXAPARIN NA (PORCINE) 40 MG/0.4 ML DISP.SYRIN SQ SCH (10:00)
== END 2023-04-08 14:10 | disposition home or self-care (01) | DRG 698 ==
LOC: JER 13:13 → JERBED 15:33 → J7W 17:45
PROVIDERS: ADMIT Internal Medicine; ATTEND Student in an Organized Health Care Education/Training Program
DX: T83.511A Infection and inflammatory reaction due to indwelling urethral catheter, initial encounter (principal); G93.41 Metabolic encephalopathy; F02.818 Dementia in other diseases classified elsewhere, unspecified severity, with other behavioral disturbance; N39.0 Urinary tract infection, site not specified; G30.9 Alzheimer's disease, unspecified; M11.231 Other chondrocalcinosis, right wrist; N31.9 Neuromuscular dysfunction of bladder, unspecified; E11.9 Type 2 diabetes mellitus without complications; I25.10 Atherosclerotic heart disease of native coronary artery without angina pectoris; Y83.9 Surgical procedure, unspecified as the cause of abnormal reaction of the patient, or of later complication, without mention of misadventure at the time of the procedure; E78.5 Hyperlipidemia, unspecified
CPT/HCPCS: 0241U-QW; 36415; 70450-TC; 71045-TC-FY; 73130-TC-RT-FY; 76775-TC; 76856-TC; 80048; 80053; 80061; 81003; 82248; 82962; 83735; 84100; 85025; 85610; 85651; 85730; 86140; 87040; 87086; 87186; 93005; 93010; 97116-GP; 97162-GP; 99285-25

== ENCOUNTER 2023-04-29 18:55 | Emergency (ER) | payer OTHER, BC ==
[2023-04-29 19:18] VITALS: RESP 18; BMI 29.7
[2023-04-29 21:18] LABS: POTASSIUM 4.6 mmol/L (3.5-5.1)
[2023-04-29 21:21] LABS: CALCIUM 10.2 mg/dL (8.5-10.1)
[2023-04-29 21:22] LABS: ALBUMIN 3.3 g/dl (3.4-5.0); BLOOD UREA NITROGEN 21.7 mg/dL (7-18)
[2023-04-29 21:25] LABS: INR 1.01 (0.83-1.09); PROTHROMBIN TIME (PATIENT) 11.7 SEC (9.7-13.0)
[2023-04-29 21:26] LABS: BASO % 0.5 % (0-2.0); BILIRUBIN,TOTAL 0.7 mg/dL (0.2-1); EOS % 3.7 % (0-4.5); HEMATOCRIT 37.7 % (35.4-49); HEMOGLOBIN 12.4 GM/dL (11.7-16.9); LYMPH % 14.1 % (8-40); MCH 29.1 pg (25.7-33.7); MCHC 32.9 g/dl (32.0-35.9); MEAN CELL VOLUME 88.3 fl (80-96); MEAN PLT VOLUME 8.7 fl (7.5-11.1); MONO % 5.6 % (3.8-10.2); NEUT % 76.1 % (42.8-82.8); PLATELET COUNT 275 10^3/uL (134-434); RBC 4.27 M/mm3 (4.00-5.60); RDW 13.3 % (11.9-15.9); WHITE BLOOD COUNT 7.1 K/mm3 (4.0-10.0)
[2023-04-29 21:27] LABS: TOT PROT 6.5 g/dl (6.4-8.2)
[2023-04-29 23:27] LABS: EPI CELLS 23 /uL (0-25.1); HYALINE CASTS 0 /uL (0-3.1); PH,URINE 6.5 (5.0-8.0); URINE APPEARANCE CLOUDY; URINE BACTERIA 25 /uL (0-1359); URINE BILIRUBIN NEGATIVE (NEGATIVE); URINE COLOR RED; URINE GLUCOSE (UA) NEGATIVE (NEGATIVE); URINE KETONE NEGATIVE (NEGATIVE); URINE LEUK ESTERASE 2+ (NEGATIVE); URINE NITRITE NEGATIVE (NEGATIVE); URINE PROTEIN 1+ (NEGATIVE); URINE UROBILINOGEN 0.2 mg/dL (0.2-1.0); URINE WBC 162 /uL (0-25.8)
[2023-04-29] MEDS ORDERED: CEPHALEXIN MONOHYDRATE 500 MG CAPSULE (UD) PO ONE (23:31)
[2023-04-29] MEDS ORDERED: CEPHALEXIN MONOHYDRATE 500 MG CAPSULE (UD) ONE (23:48)
[2023-04-30 02:37] VITALS: BP 119/58; PULSE 62; TEMP 98.4
[2023-04-30 03:46] LABS: URINE RBC 21397.3 /uL (0-23.9); YEAST NONE SEEN (NEGATIVE)
== END 2023-04-30 02:45 | disposition home or self-care (01) ==
LOC: JER 18:55
PROC: 0T9B70Z Drainage of Bladder with Drainage Device, Via Natural or Artificial Opening (ICD-10-PCS; principal; 2023-04-29)
DX: R31.9 Hematuria, unspecified (principal); R10.2 Pelvic and perineal pain
CPT/HCPCS: 36415; 80053; 81003; 85025; 85610; 87086; 87186; 99283-25

== ENCOUNTER 2024-03-28 18:00 | Inpatient (IN) | payer OTHER, BC ==
[2024-03-28 20:06] LABS: BASO % 0.2 % (0-2.0); EOS % 0.9 % (0-4.5); HEMATOCRIT 35.1 % (35.4-49); HEMOGLOBIN 11.9 GM/dL (11.7-16.9); LYMPH % 5.5 % (8-40); MCH 30.7 pg (25.7-33.7); MEAN CELL VOLUME 90.3 fl (80-96); MEAN PLT VOLUME 7.9 fl (7.5-11.1); MONO % 4.4 % (3.8-10.2); PLATELET COUNT 232 10^3/uL (134-434); RBC 3.89 M/mm3 (4.00-5.60); RDW 12.7 % (11.9-15.9); WHITE BLOOD COUNT 10.8 K/mm3 (4.0-10.0)
[2024-03-28 20:10] LABS: VENOUS BASE EXCESS -0.3 mmol/L (-2-2); VENOUS O2 SATURATION 42.7 % (70-80); VENOUS PCO2 49.4 mmHg (38-52); VENOUS PH 7.34 (7.310-7.410)
[2024-03-28 20:25] LABS: POTASSIUM 4.9 mmol/L (3.5-5.1)
[2024-03-28 20:28] LABS: ALBUMIN 3.8 g/dl (3.4-5.0); BLOOD UREA NITROGEN 19.5 mg/dL (7-18)
[2024-03-28 20:31] LABS: CREATININE 1.3 mg/dL (0.55-1.3); PHOSPHOROUS 3.4 mg/dL (2.5-4.9)
[2024-03-28 20:33] LABS: BILIRUBIN,TOTAL 0.8 mg/dL (0.2-1)
[2024-03-28 22:34] LABS: EPI CELLS 5 /uL (0-25.1); HYALINE CASTS 0 /uL (0-3.1); URINE APPEARANCE CLEAR; URINE BACTERIA 167 /uL (0-1359); URINE BILIRUBIN NEGATIVE (NEGATIVE); URINE COLOR YELLOW; URINE GLUCOSE (UA) NEGATIVE (NEGATIVE); URINE KETONE NEGATIVE (NEGATIVE); URINE LEUK ESTERASE 1+ (NEGATIVE); URINE NITRITE NEGATIVE (NEGATIVE); URINE PROTEIN TRACE (NEGATIVE); URINE RBC 47 /uL (0-23.9); URINE WBC 51 /uL (0-25.8)
[2024-03-29] MEDS: MELATONIN 5 MG TABLETS PO SCH (01:14)
[2024-03-29] MEDS ORDERED: INSULIN ASPART SLIDING SCALE (NOVOLOG) 1 VIAL SQ SCH (07:00)
[2024-03-29 07:14] LABS: HEMOGLOBIN 11.6 GM/dL (11.7-16.9); MCH 30.8 pg (25.7-33.7); MCHC 34.3 g/dl (32.0-35.9); MEAN CELL VOLUME 89.9 fl (80-96); MEAN PLT VOLUME 8.1 fl (7.5-11.1); PLATELET COUNT 227 10^3/uL (134-434); RBC 3.78 M/mm3 (4.00-5.60); RDW 13.1 % (11.9-15.9); WHITE BLOOD COUNT 6.6 K/mm3 (4.0-10.0)
[2024-03-29 07:29] LABS: POTASSIUM 4.6 mmol/L (3.5-5.1)
[2024-03-29 07:33] LABS: ALBUMIN 3.6 g/dl (3.4-5.0)
[2024-03-29 07:35] LABS: CALCIUM 9.7 mg/dL (8.5-10.1)
[2024-03-29 07:36] LABS: BLOOD UREA NITROGEN 17.6 mg/dL (7-18); MAGNESIUM 1.9 mg/dL (1.8-2.4); PHOSPHOROUS 2.8 mg/dL (2.5-4.9)
[2024-03-29 07:38] LABS: TOT PROT 6.9 g/dl (6.4-8.2)
[2024-03-29 07:39] LABS: CREATININE 1.1 mg/dL (0.55-1.3)
[2024-03-29 07:41] LABS: BILIRUBIN,TOTAL 1.3 mg/dL (0.2-1)
[2024-03-29] MEDS: INSULIN ASPART SLIDING SCALE (NOVOLOG) 1 VIAL SQ SCH (08:03)
[2024-03-29 08:19] VITALS: TEMP 98.6; BMI 30.1
[2024-03-29] MEDS ORDERED: [UNRECOGNIZED DRUG - OTHER] PO SCH (10:00)
[2024-03-29] MEDS ORDERED: NITROFURANTOIN 25 MG/5 ML PO SCH (10:00)
[2024-03-29] MEDS: SODIUM CHLORIDE 1 GM TABLET PO SCH (10:06)
[2024-03-29] MEDS: ESCITALOPRAM OXALATE 10 MG TABLET PO SCH (10:06)
[2024-03-29] MEDS: ENOXAPARIN NA (PORCINE) 40 MG/0.4 ML DISP.SYRIN SQ SCH (10:06)
[2024-03-29] MEDS: POLYETHYLENE GLYCOL (HEALTHYLAX) 3350 17 GM PACKET PO SCH (10:06)
[2024-03-29 10:09] LABS: BILIRUBIN,DIRECT 0.3 mg/dL (0.0-0.2)
[2024-03-29 14:57] VITALS: BP 149/67; PULSE 62; RESP 18
[2024-03-29] MEDS ORDERED: ASPIRIN 81 MG CHEWABLE TABLETS PO SCH (22:00)
[2024-03-29] MEDS ORDERED: MELATONIN 5 MG TABLETS PO SCH (22:00)
[2024-03-29] MEDS ORDERED: ROSUVASTATIN CA 5 MG TABLET PO SCH (22:00)
== END 2024-03-29 16:36 | disposition home or self-care (01) | DRG 312 ==
LOC: JER 18:00 → JERBED 19:33 → J4W 03-29 07:12
PROVIDERS: ADMIT Internal Medicine; ATTEND Internal Medicine
DX: R55 Syncope and collapse (principal); I10 Essential (primary) hypertension; E78.5 Hyperlipidemia, unspecified; N31.9 Neuromuscular dysfunction of bladder, unspecified; I35.0 Nonrheumatic aortic (valve) stenosis; G30.9 Alzheimer's disease, unspecified; F02.80 Dementia in other diseases classified elsewhere, unspecified severity, without behavioral disturbance, psychotic disturbance, mood disturbance, and anxiety; E11.9 Type 2 diabetes mellitus without complications; I45.10 Unspecified right bundle-branch block; M48.061 Spinal stenosis, lumbar region without neurogenic claudication; G62.9 Polyneuropathy, unspecified; Z86.718 Personal history of other venous thrombosis and embolism; I77.819 Aortic ectasia, unspecified site
CPT/HCPCS: 36415; 70450-TC; 71045-TC-FY; 80053; 81003; 82248; 82550; 82803; 82962; 83605; 83735; 83880; 84100; 84484; 85025; 85027; 87086; 87186; 93005; 93010; 93306-TC; 97116-GP; 97161-GP; 99285-25

== ENCOUNTER 2024-09-06 16:59 | Inpatient (IN) | payer OTHER, BC ==
[2024-09-06 17:29] VITALS: BMI 29.7
[2024-09-06] MEDS ORDERED: ALBUTEROL SO4 2.5/IPRATROPIUM 0.5 INH SOL 3 ML VIAL.NEB. NEB ONE ×2 (18:01→19:54)
[2024-09-06 18:23] LABS: BASO % 0.2 % (0-2.0); HEMATOCRIT 41.6 % (35.4-49); HEMOGLOBIN 13.4 GM/dL (11.7-16.9); LYMPH % 12.6 % (8-40); MCH 28.8 pg (25.7-33.7); MCHC 32.2 g/dl (32.0-35.9); MEAN CELL VOLUME 89.2 fl (80-96); MONO % 4.5 % (3.8-10.2); NEUT % 78.7 % (42.8-82.8); PLATELET COUNT 246 10^3/uL (134-434); RBC 4.67 M/mm3 (4.00-5.60); RDW 13.2 % (11.9-15.9); WHITE BLOOD COUNT 8.2 K/mm3 (4.0-10.0)
[2024-09-06 18:28] LABS: PROTHROMBIN TIME (PATIENT) 11.3 SEC (9.7-13.0)
[2024-09-06 18:31] LABS: ACTIVATED PTT 35.3 SECONDS (25.2-36.5)
[2024-09-06] MEDS: ALBUTEROL SO4 2.5/IPRATROPIUM 0.5 INH SOL 3 ML VIAL.NEB. NEB ONE (19:53)
[2024-09-06] MEDS ORDERED: AMPICILLIN NA/SULBACTAM NA 1.5 GM VIAL ONE (20:33)
[2024-09-06] MEDS: AMPICILLIN NA/SULBACTAM NA 1.5 GM in SODIUM CHLORIDE 100 ML IVPB ONE (20:34)
[2024-09-06] MEDS ORDERED: NYSTATIN POWDER 100,000 UNITS/GM - 15 GM TOPICAL POWDER TP SCH (22:15)
[2024-09-06] MEDS: INSULIN ASPART SLIDING SCALE (NOVOLOG) 1 VIAL SQ SCH (22:33)
[2024-09-06 23:11] LABS: BLOOD UREA NITROGEN 19.6 mg/dL (7-18); CALCIUM 10.8 mg/dL (8.5-10.1); POTASSIUM 4.8 mmol/L (3.5-5.1); TOT PROT 7.6 g/dl (6.4-8.2)
[2024-09-06 23:12] LABS: BILIRUBIN,TOTAL 1.2 mg/dL (0.2-1)
[2024-09-06] MEDS ORDERED: ALBUTEROL SO4 HFA INHALER IH PRN (23:44)
[2024-09-06] MEDS: NYSTATIN POWDER 100,000 UNITS/GM - 15 GM TOPICAL POWDER TP SCH (23:48)
[2024-09-07 05:52] LABS: HIV INTERPRETATION NEGATIVE (NEGATIVE)
[2024-09-07 09:52] LABS: POTASSIUM 4.4 mmol/L (3.5-5.1)
[2024-09-07 09:58] LABS: CALCIUM 10.4 mg/dL (8.5-10.1)
[2024-09-07 09:59] LABS: ALBUMIN 3.8 g/dl (3.4-5.0); MAGNESIUM 1.9 mg/dL (1.8-2.4)
[2024-09-07 10:02] LABS: CREATININE 0.9 mg/dL (0.55-1.3)
[2024-09-07 10:03] LABS: BILIRUBIN,TOTAL 1.6 mg/dL (0.2-1)
[2024-09-07 10:04] LABS: TOT PROT 7.2 g/dl (6.4-8.2)
[2024-09-07] MEDS: ESCITALOPRAM OXALATE 10 MG TABLET PO SCH (10:26)
[2024-09-07] MEDS: SODIUM CHLORIDE 1 GM TABLET PO SCH (10:26)
[2024-09-07] MEDS: ASPIRIN COATED 81 MG TABLET.EC PO SCH (10:26)
[2024-09-07] MEDS: ENOXAPARIN NA (PORCINE) 40 MG/0.4 ML DISP.SYRIN SQ SCH (10:26)
[2024-09-07] MEDS: PANTOPRAZOLE SODIUM 40 MG VIAL IVPUSH SCH (10:26)
[2024-09-07 11:04] LABS: BASO % 0.3 % (0-2.0); EOS % 4.7 % (0-4.5); HEMATOCRIT 38.3 % (35.4-49); HEMOGLOBIN 12.8 GM/dL (11.7-16.9); LYMPH % 13.6 % (8-40); MCH 29.5 pg (25.7-33.7); MCHC 33.4 g/dl (32.0-35.9); MEAN CELL VOLUME 88.4 fl (80-96); MEAN PLT VOLUME 8.2 fl (7.5-11.1); MONO % 4.5 % (3.8-10.2); NEUT % 76.9 % (42.8-82.8); PLATELET COUNT 240 10^3/uL (134-434); RBC 4.33 M/mm3 (4.00-5.60); RDW 12.9 % (11.9-15.9); WHITE BLOOD COUNT 8.3 K/mm3 (4.0-10.0)
[2024-09-07] MEDS: MELATONIN 5 MG TABLETS PO ONE (18:47)
[2024-09-07] MEDS: ALBUTEROL SO4 2.5/IPRATROPIUM 0.5 INH SOL 3 ML VIAL.NEB. NEB SCH (20:31)
[2024-09-08 09:55] LABS: BASO % 0.3 % (0-2.0); EOS % 5.3 % (0-4.5); HEMATOCRIT 35.2 % (35.4-49); LYMPH % 15.5 % (8-40); MCH 29.8 pg (25.7-33.7); MCHC 34.1 g/dl (32.0-35.9); MEAN CELL VOLUME 87.2 fl (80-96); MONO % 6.3 % (3.8-10.2); NEUT % 72.6 % (42.8-82.8); PLATELET COUNT 220 10^3/uL (134-434); RBC 4.03 M/mm3 (4.00-5.60); RDW 13.1 % (11.9-15.9); WHITE BLOOD COUNT 6.5 K/mm3 (4.0-10.0)
[2024-09-08 10:11] LABS: POTASSIUM 4.5 mmol/L (3.5-5.1)
[2024-09-08 10:17] LABS: CALCIUM 10.2 mg/dL (8.5-10.1)
[2024-09-08 10:18] LABS: ALBUMIN 3.3 g/dl (3.4-5.0); BLOOD UREA NITROGEN 15.3 mg/dL (7-18); MAGNESIUM 1.9 mg/dL (1.8-2.4)
[2024-09-08 10:20] LABS: CREATININE 0.9 mg/dL (0.55-1.3)
[2024-09-08 10:22] LABS: BILIRUBIN,TOTAL 1.6 mg/dL (0.2-1); TOT PROT 6.3 g/dl (6.4-8.2)
[2024-09-08] MEDS: FUROSEMIDE 20 MG TABLET (FP) PO SCH (11:07)
[2024-09-08] MEDS: ROSUVASTATIN CA 5 MG TABLET PO SCH (21:30)
[2024-09-09 08:18] LABS: BASO % 0.3 % (0-2.0); EOS % 5.3 % (0-4.5); HEMATOCRIT 36.6 % (35.4-49); LYMPH % 15.3 % (8-40); MCH 28.9 pg (25.7-33.7); MCHC 32.7 g/dl (32.0-35.9); MEAN CELL VOLUME 88.4 fl (80-96); MEAN PLT VOLUME 8.2 fl (7.5-11.1); MONO % 5.8 % (3.8-10.2); NEUT % 73.3 % (42.8-82.8); PLATELET COUNT 219 10^3/uL (134-434); RBC 4.14 M/mm3 (4.00-5.60); RDW 13.1 % (11.9-15.9); WHITE BLOOD COUNT 7.6 K/mm3 (4.0-10.0)
[2024-09-09 08:28] LABS: POTASSIUM 4.4 mmol/L (3.5-5.1)
[2024-09-09 08:33] LABS: ALBUMIN 3.4 g/dl (3.4-5.0); BLOOD UREA NITROGEN 15.3 mg/dL (7-18); CALCIUM 10.1 mg/dL (8.5-10.1)
[2024-09-09 08:34] LABS: MAGNESIUM 1.8 mg/dL (1.8-2.4)
[2024-09-09 08:37] LABS: CREATININE 1.1 mg/dL (0.55-1.3)
[2024-09-09 08:38] LABS: BILIRUBIN,TOTAL 1.6 mg/dL (0.2-1); TOT PROT 6.5 g/dl (6.4-8.2)
[2024-09-09] MEDS: SODIUM CHLORIDE 1,000 ML IV SCH (11:48)
[2024-09-09] MEDS: POLYETHYLENE GLYCOL (HEALTHYLAX) 3350 17 GM PACKET PO PRN (16:34)
[2024-09-09] MEDS: MELATONIN 5 MG TABLETS PO PRN (22:20)
[2024-09-10 10:03] LABS: BASO % 0.3 % (0-2.0); EOS % 5.7 % (0-4.5); HEMOGLOBIN 11.4 GM/dL (11.7-16.9); LYMPH % 14.1 % (8-40); MCH 29.4 pg (25.7-33.7); MCHC 33.4 g/dl (32.0-35.9); MEAN CELL VOLUME 88.1 fl (80-96); MEAN PLT VOLUME 8.1 fl (7.5-11.1); MONO % 6.9 % (3.8-10.2); PLATELET COUNT 189 10^3/uL (134-434); RBC 3.86 M/mm3 (4.00-5.60); WHITE BLOOD COUNT 6.1 K/mm3 (4.0-10.0)
[2024-09-10 10:16] LABS: POTASSIUM 4.3 mmol/L (3.5-5.1)
[2024-09-10 10:20] LABS: CALCIUM 9.9 mg/dL (8.5-10.1)
[2024-09-10 10:21] LABS: ALBUMIN 3.2 g/dl (3.4-5.0); BLOOD UREA NITROGEN 15.9 mg/dL (7-18); MAGNESIUM 1.7 mg/dL (1.8-2.4)
[2024-09-10 10:23] LABS: CREATININE 1.1 mg/dL (0.55-1.3)
[2024-09-10 10:25] LABS: BILIRUBIN,TOTAL 1.3 mg/dL (0.2-1); TOT PROT 6.2 g/dl (6.4-8.2)
[2024-09-10] MEDS: PANTOPRAZOLE 40 MG TABLET PO SCH (11:08)
[2024-09-10] MEDS ORDERED: MELATONIN 5 MG TABLETS PO PRN (20:59)
[2024-09-10] MEDS: MELATONIN 5 MG TABLETS PO PRN (21:06)
[2024-09-11 08:55] VITALS: RESP 20
[2024-09-11 14:35] VITALS: BP 113/72; PULSE 66; TEMP 98.4
== END 2024-09-11 14:45 | disposition home health service (06) | DRG 56 ==
LOC: JER 16:59 → JERBED 17:55 → J5S 09-07 00:19
PROVIDERS: ADMIT Student in an Organized Health Care Education/Training Program; ATTEND Internal Medicine
DX: G30.9 Alzheimer's disease, unspecified (principal); J69.0 Pneumonitis due to inhalation of food and vomit; F02.80 Dementia in other diseases classified elsewhere, unspecified severity, without behavioral disturbance, psychotic disturbance, mood disturbance, and anxiety; R13.10 Dysphagia, unspecified; R09.02 Hypoxemia; E78.5 Hyperlipidemia, unspecified; I10 Essential (primary) hypertension; E11.40 Type 2 diabetes mellitus with diabetic neuropathy, unspecified; E83.52 Hypercalcemia
CPT/HCPCS: 0241U-QW; 36415; 70490-TC; 71045-TC-FY; 71250-TC; 74230-TC-FY; 80048; 80053; 82962; 83735; 83930; 83935; 83970; 84100; 85025; 85610; 85730; 86803; 86850; 86900; 86901; 87389; 92611-GN; 93005; 93010; 94640; 97161-GP; 99285-25

== ENCOUNTER 2024-09-26 18:01 | Inpatient (IN) | payer OTHER, BC ==
[2024-09-26] MEDS ORDERED: ALBUTEROL SO4 0.083% IH SOL 2.5 MG/3 ML VIAL.NEB. NEB ONE (19:06)
[2024-09-26] MEDS ORDERED: PIPERACILLIN/TAZOB 4.5 GM 4.5 GM/100 ML BAG IVPB ONE (19:06)
[2024-09-26] MEDS: ALBUTEROL SO4 0.083% IH SOL 2.5 MG/3 ML VIAL.NEB. NEB ONE (19:08)
[2024-09-26] MEDS: PIPERACILLIN/TAZOB 4.5 GM 4.5 GM in DEXTROSE 5%-WATER 100 ML IVPB ONE (19:08)
[2024-09-26 19:15] LABS: BASO % 0.1 % (0-2.0); EOS % 1.8 % (0-4.5); HEMATOCRIT 39.7 % (35.4-49); HEMOGLOBIN 13.2 GM/dL (11.7-16.9); LYMPH % 5.9 % (8-40); MCH 29.3 pg (25.7-33.7); MCHC 33.1 g/dl (32.0-35.9); MEAN CELL VOLUME 88.3 fl (80-96); MEAN PLT VOLUME 7.8 fl (7.5-11.1); MONO % 4.6 % (3.8-10.2); NEUT % 87.6 % (42.8-82.8); PLATELET COUNT 262 10^3/uL (134-434); RDW 13.6 % (11.9-15.9); WHITE BLOOD COUNT 10.5 K/mm3 (4.0-10.0)
[2024-09-26] MEDS: ALBUTEROL SO4 2.5/IPRATROPIUM 0.5 INH SOL 3 ML VIAL.NEB. NEB SCH (19:16)
[2024-09-26 19:18] LABS: VENOUS BASE EXCESS -2.7 mmol/L (-2-2); VENOUS O2 SATURATION 72.5 % (70-80); VENOUS PCO2 46.1 mmHg (38-52); VENOUS PH 7.325 (7.310-7.410)
[2024-09-26 19:25] LABS: PROTHROMBIN TIME (PATIENT) 11.3 SEC (9.7-13.0)
[2024-09-26 19:27] LABS: ACTIVATED PTT 33.4 SECONDS (25.2-36.5)
[2024-09-26] MEDS: SODIUM CHLORIDE 0.9% 500 ML INFUS.BAG IV ONE (19:33)
[2024-09-26 19:37] LABS: POTASSIUM 4.3 mmol/L (3.5-5.1)
[2024-09-26 19:39] LABS: CALCIUM 10.1 mg/dL (8.5-10.1)
[2024-09-26 19:40] LABS: ALBUMIN 3.8 g/dl (3.4-5.0); BLOOD UREA NITROGEN 16.4 mg/dL (7-18); MAGNESIUM 1.9 mg/dL (1.8-2.4)
[2024-09-26 19:42] LABS: CREATININE 1.1 mg/dL (0.55-1.3)
[2024-09-26 19:43] LABS: PHOSPHOROUS 3.9 mg/dL (2.5-4.9)
[2024-09-26 19:44] LABS: TOT PROT 7.1 g/dl (6.4-8.2)
[2024-09-26 19:48] LABS: N-TERMINAL BNP 781.3 pg/ml (5-450)
[2024-09-26] MEDS: VANCOMYCIN PREMIX 1.75 GM 1,750 MG/350 ML PIGGYBACK IVPB ONE (20:07)
[2024-09-27] MEDS: SODIUM CHLORIDE 1,000 ML IV SCH (01:37)
[2024-09-27] MEDS ORDERED: ALBUTEROL SO4 2.5/IPRATROPIUM 0.5 INH SOL 3 ML VIAL.NEB. NEB PRN (01:53)
[2024-09-27] MEDS: ALBUTEROL SO4 2.5/IPRATROPIUM 0.5 INH SOL 3 ML VIAL.NEB. NEB ONE (01:58)
[2024-09-27] MEDS: methylPREDNISolone NA SUCC 40 MG/1 ML VIAL IVPUSH ONE (01:58)
[2024-09-27 03:52] VITALS: BMI 31.0
[2024-09-27] MEDS: MELATONIN 5 MG TABLETS PO ONE (04:17)
[2024-09-27] MEDS: INSULIN ASPART SLIDING SCALE (NOVOLOG) 1 VIAL SQ SCH (06:21)
[2024-09-27] MEDS: ALBUTEROL SO4 2.5/IPRATROPIUM 0.5 INH SOL 3 ML VIAL.NEB. NEB SCH (08:14)
[2024-09-27 08:39] LABS: POTASSIUM 4.8 mmol/L (3.5-5.1)
[2024-09-27 08:48] LABS: ALBUMIN 3.7 g/dl (3.4-5.0); BLOOD UREA NITROGEN 15.5 mg/dL (7-18); CALCIUM 9.7 mg/dL (8.5-10.1); MAGNESIUM 1.7 mg/dL (1.8-2.4)
[2024-09-27 08:51] LABS: CREATININE 1.1 mg/dL (0.55-1.3)
[2024-09-27 08:52] LABS: BILIRUBIN,TOTAL 1.3 mg/dL (0.2-1); TOT PROT 6.9 g/dl (6.4-8.2)
[2024-09-27 09:16] LABS: HEMATOCRIT 37.5 % (35.4-49); HEMOGLOBIN 12.8 GM/dL (11.7-16.9); MCH 30.2 pg (25.7-33.7); MEAN CELL VOLUME 88.8 fl (80-96); MEAN PLT VOLUME 8.3 fl (7.5-11.1); PLATELET COUNT 212 10^3/uL (134-434); RBC 4.23 M/mm3 (4.00-5.60); RDW 13.4 % (11.9-15.9); WHITE BLOOD COUNT 8.3 K/mm3 (4.0-10.0)
[2024-09-27] MEDS: ENOXAPARIN NA (PORCINE) 40 MG/0.4 ML DISP.SYRIN SQ SCH (09:57)
[2024-09-27] MEDS: methylPREDNISolone NA SUCC 40 MG/1 ML VIAL IVPUSH SCH (09:57)
[2024-09-27] MEDS: POLYETHYLENE GLYCOL (HEALTHYLAX) 3350 17 GM PACKET PO SCH (09:57)
[2024-09-27] MEDS: FUROSEMIDE 20 MG TABLET (FP) PO SCH (09:57)
[2024-09-27] MEDS: SODIUM CHLORIDE 1 GM TABLET PO SCH (09:57)
[2024-09-27] MEDS: ESCITALOPRAM OXALATE 10 MG TABLET PO SCH (09:57)
[2024-09-27] MEDS ORDERED: SODIUM CHLORIDE 1,000 ML IV SCH (11:30)
[2024-09-27 11:56] LABS: HIV INTERPRETATION NEGATIVE (NEGATIVE)
[2024-09-27] MEDS: MAGNESIUM 2GM/50ML STERILE WATER IVPB IVPB ONE (17:34)
[2024-09-27] MEDS: MELATONIN 5 MG TABLETS PO SCH (21:16)
[2024-09-27] MEDS: ROSUVASTATIN CA 5 MG TABLET PO SCH (21:16)
[2024-09-27] MEDS: ASPIRIN COATED 81 MG TABLET.EC PO SCH (21:17)
[2024-09-28 08:09] LABS: HEMOGLOBIN 11.8 GM/dL (11.7-16.9); MCH 29.4 pg (25.7-33.7); MCHC 32.8 g/dl (32.0-35.9); MEAN CELL VOLUME 89.7 fl (80-96); MEAN PLT VOLUME 8.2 fl (7.5-11.1); PLATELET COUNT 225 10^3/uL (134-434); RBC 4.02 M/mm3 (4.00-5.60); RDW 13.1 % (11.9-15.9); WHITE BLOOD COUNT 8.3 K/mm3 (4.0-10.0)
[2024-09-28 08:28] LABS: POTASSIUM 4.6 mmol/L (3.5-5.1)
[2024-09-28 08:36] LABS: ALBUMIN 3.6 g/dl (3.4-5.0); CALCIUM 10.2 mg/dL (8.5-10.1); CREATININE 1.1 mg/dL (0.55-1.3); PHOSPHOROUS 2.6 mg/dL (2.5-4.9)
[2024-09-28 08:37] LABS: BLOOD UREA NITROGEN 20.4 mg/dL (7-18); MAGNESIUM 1.9 mg/dL (1.8-2.4)
[2024-09-28 08:38] LABS: BILIRUBIN,TOTAL 1.2 mg/dL (0.2-1); TOT PROT 6.9 g/dl (6.4-8.2)
[2024-09-28 09:55] LABS: ANISOCYTOSIS 0; HELMET CELLS 0; HOWELL-JOLLY BODIES 0; MACROCYTOSIS 0; OVALOCYTE 0; ROULEAU 0; SICKELED CELLS 0; TARGET CELLS 0; TEAR DROP CELLS 0; TOXIC GRANULATION 0
[2024-09-28] MEDS: PANTOPRAZOLE SOD 40 MG SUSPENSION PACKET PO SCH (12:27)
[2024-09-29 08:31] LABS: HEMATOCRIT 34.1 % (35.4-49); HEMOGLOBIN 11.4 GM/dL (11.7-16.9); MCHC 33.5 g/dl (32.0-35.9); MEAN CELL VOLUME 89.4 fl (80-96); MEAN PLT VOLUME 8.1 fl (7.5-11.1); PLATELET COUNT 191 10^3/uL (134-434); RBC 3.81 M/mm3 (4.00-5.60); RDW 13.3 % (11.9-15.9); WHITE BLOOD COUNT 5.3 K/mm3 (4.0-10.0)
[2024-09-29 08:46] LABS: POTASSIUM 5.1 mmol/L (3.5-5.1)
[2024-09-29 08:53] LABS: ALBUMIN 3.3 g/dl (3.4-5.0)
[2024-09-29 08:54] LABS: BLOOD UREA NITROGEN 28.7 mg/dL (7-18); CALCIUM 9.5 mg/dL (8.5-10.1)
[2024-09-29 08:57] LABS: CREATININE 0.9 mg/dL (0.55-1.3); PHOSPHOROUS 2.4 mg/dL (2.5-4.9)
[2024-09-29 08:58] LABS: TOT PROT 6.2 g/dl (6.4-8.2)
[2024-09-29 09:35] LABS: ANISOCYTOSIS 0; HELMET CELLS 0; HOWELL-JOLLY BODIES 0; MACROCYTOSIS 0; OVALOCYTE 0; ROULEAU 0; SICKELED CELLS 0; TARGET CELLS 0; TEAR DROP CELLS 0; TOXIC GRANULATION 0
[2024-09-30 07:49] LABS: BASO % 0.1 % (0-2.0); HEMATOCRIT 35.9 % (35.4-49); HEMOGLOBIN 11.9 GM/dL (11.7-16.9); LYMPH % 8.5 % (8-40); MCH 29.9 pg (25.7-33.7); MCHC 33.3 g/dl (32.0-35.9); MEAN CELL VOLUME 89.9 fl (80-96); MEAN PLT VOLUME 7.9 fl (7.5-11.1); MONO % 6.4 % (3.8-10.2); PLATELET COUNT 185 10^3/uL (134-434); RBC 3.99 M/mm3 (4.00-5.60); RDW 13.4 % (11.9-15.9); WHITE BLOOD COUNT 6.4 K/mm3 (4.0-10.0)
[2024-09-30 08:08] LABS: POTASSIUM 4.6 mmol/L (3.5-5.1)
[2024-09-30 08:12] LABS: ALBUMIN 3.4 g/dl (3.4-5.0); BLOOD UREA NITROGEN 32.1 mg/dL (7-18)
[2024-09-30 08:14] LABS: BILIRUBIN,TOTAL 1.1 mg/dL (0.2-1); CALCIUM 10.1 mg/dL (8.5-10.1); MAGNESIUM 2.1 mg/dL (1.8-2.4); TOT PROT 6.3 g/dl (6.4-8.2)
[2024-09-30 08:15] LABS: CREATININE 1.1 mg/dL (0.55-1.3)
[2024-10-01 07:22] LABS: HEMATOCRIT 35.1 % (35.4-49); HEMOGLOBIN 11.7 GM/dL (11.7-16.9); MCH 29.8 pg (25.7-33.7); MCHC 33.2 g/dl (32.0-35.9); MEAN CELL VOLUME 89.7 fl (80-96); MEAN PLT VOLUME 7.5 fl (7.5-11.1); PLATELET COUNT 172 10^3/uL (134-434); RBC 3.91 M/mm3 (4.00-5.60); RDW 13.3 % (11.9-15.9); WHITE BLOOD COUNT 5.3 K/mm3 (4.0-10.0)
[2024-10-01 07:34] LABS: POTASSIUM 4.7 mmol/L (3.5-5.1)
[2024-10-01 07:38] LABS: ALBUMIN 3.2 g/dl (3.4-5.0); CALCIUM 10.1 mg/dL (8.5-10.1)
[2024-10-01 07:39] LABS: BLOOD UREA NITROGEN 28.2 mg/dL (7-18)
[2024-10-01 07:42] LABS: PHOSPHOROUS 2.4 mg/dL (2.5-4.9)
[2024-10-01 07:43] LABS: BILIRUBIN,TOTAL 1.5 mg/dL (0.2-1); TOT PROT 5.8 g/dl (6.4-8.2)
[2024-10-02] VITALS: RESP 18
[2024-10-02 06:22] VITALS: BP 150/72; PULSE 57; TEMP 97.5
== END 2024-10-02 10:42 | disposition home or self-care (01) | DRG 391 ==
LOC: JER 18:01 → JERBED 21:54 → J4W 09-27 03:35 → OBSVTOIN 09-27 09:19
PROVIDERS: ADMIT Internal Medicine; ATTEND Internal Medicine
DX: K22.4 Dyskinesia of esophagus (principal); J96.01 Acute respiratory failure with hypoxia; E87.1 Hypo-osmolality and hyponatremia; T83.83XA Hemorrhage due to genitourinary prosthetic devices, implants and grafts, initial encounter; E11.40 Type 2 diabetes mellitus with diabetic neuropathy, unspecified; N31.9 Neuromuscular dysfunction of bladder, unspecified; G30.9 Alzheimer's disease, unspecified; F02.80 Dementia in other diseases classified elsewhere, unspecified severity, without behavioral disturbance, psychotic disturbance, mood disturbance, and anxiety; I35.0 Nonrheumatic aortic (valve) stenosis; I10 Essential (primary) hypertension; E78.5 Hyperlipidemia, unspecified; R13.10 Dysphagia, unspecified; R33.9 Retention of urine, unspecified; R31.9 Hematuria, unspecified; Y84.6 Urinary catheterization as the cause of abnormal reaction of the patient, or of later complication, without mention of misadventure at the time of the procedure
CPT/HCPCS: 0241U-QW; 36415; 70490-TC; 71045-TC-FY; 71250-TC; 74230-TC-FY; 80053; 82550; 82803; 82962; 83735; 83880; 84100; 84484; 85025; 85027; 85610; 85730; 86803; 86850; 86900; 86901; 87389; 92611-GN; 93005; 93010; 94640; 99285-25; G0378; J3370